=== PATIENT | female | born 1970 | race Caucasian/White ===

== ENCOUNTER → 2016-12-23 | Outpatient (CLI) | payer BC ==
--- NOTE | 2016-12-23 14:49 | MM ---
Reason for exam: clinical finding. Last mammogram was performed 1 year and 9 months ago. History: Patient is postmenopausal. Family history of breast cancer in aunt at age 40. Took hormonal contraceptives for 3 years beginning at age 16. Physical Findings: Nurse did not find any significant physical abnormalities on exam. MG Diagnostic Mammo w CAD TATYANA Bilateral CC and MLO view(s) were taken. Prior study comparison: March 21, 2015, bilateral MG screening mammo w CAD. December 15, 2013, bilateral digital screening mammo w/CAD. March 23, 2012, bilateral digital screening mammo w/CAD. There are scattered fibroglandular densities. Finding: There are typically benign round calcifications in both breasts. There is a chronic nodularity bilaterally. There is no discrete abnormality. These results were verbally communicated with the patient and result sheet given to the patient on 12/23/16. ASSESSMENT: Benign, BI-RAD 2 RECOMMENDATION: Routine screening mammogram of both breasts in 1 year. Manage patient on a clinical basis with regard to thickening in the breast.
== END | disposition home or self-care (01) ==
LOC: RADMAMWWP 13:48
PROVIDERS: ATTEND Family Medicine
DX: N64.59 Other signs and symptoms in breast (principal)

== ENCOUNTER 2017-02-19 15:51 | Inpatient (IN) | payer BC ==
[2017-02-19] MEDS ORDERED: SODIUM CHLORIDE 0.9% 1,000 ML IV STA (17:43)
[2017-02-19] MEDS ORDERED: HYDROmorphone 1 MG/ML 1 ML SYRINGE IVP STA (17:43)
[2017-02-19] MEDS ORDERED: ONDANSETRON 4 MG/2 ML VIAL IVP STA (17:43)
--- NOTE | 2017-02-19 18:27 | ED ---
Abdominal Pain HPI <Gianluca Latham - Last Filed: 02/19/17 18:44> - General Source: patient, RN notes reviewed Mode of arrival: ambulatory Limitations: no limitations <Shelia Gilliam - Last Filed: 02/19/17 18:45> - General Chief Complaint: Abdominal Pain Stated Complaint: Dr Sent/ Recheck xray Time Seen by Provider: 02/19/17 17:42 - History of Present Illness Initial Comments: 46-year-old female presents to the emergency department with a chief complaint abdominal pain. Patient has had abdominal pain and fever for the past 3 or 4 days. Patient went to see her doctor today and was sent to CAT scan and then was referred here. Patient states she had a fever of 101 today. Patient states most of the left side of the abdomen. Patient states that she has never before. Patient denies any other symptoms. Patient denies any recent shortness of breath, chest pain, back pain, nausea vomiting, numbness or tingling, dysuria or hematuria, constipation or diarrhea, headaches or visual changes, or any other current symptoms. (Shelia Gilliam) - Related Data Home Medications Medication Instructions Recorded Confirmed Ergocalciferol [Vitamin D2] 50,000 unit PO TH 02/19/17 02/19/17 Gabapentin [Neurontin] 200 mg PO BID 02/19/17 02/19/17 Lansoprazole [Prevacid] 15 mg PO DAILY 02/19/17 02/19/17 Lisinopril-Hctz 10-12.5 mg 1 tab PO DAILY 02/19/17 02/19/17 [Zestoretic 10-12.5] PARoxetine [Paxil] 10 mg PO DAILY 02/19/17 02/19/17 SUMAtriptan SUCCINATE [Imitrex] 4 mg SQ ONCE PRN 02/19/17 02/19/17 Allergies Allergy/AdvReac Type Severity Reaction Status Date / Time clarithromycin [From Biaxin] Allergy Swelling Verified 02/19/17 18:05 Penicillins Allergy Swelling Verified 02/19/17 18:05 Review of Systems ROS Other: All systems not noted in ROS Statement are negative. <Gianluca Latham - Last Filed: 02/19/17 18:44> ROS Other: All systems not noted in ROS Statement are negative. <Shelia Gilliam - Last Filed: 02/19/17 18:45> ROS Statement: Those systems with pertinent positive or pertinent negative responses have been documented in the HPI. Past Medical History Past Medical History: GERD/Reflux, Hypertension Additional Past Medical History / Comment(s): migraine History of Any Multi-Drug Resistant Organisms: None Reported Past Surgical History: Cholecystectomy, Hysterectomy Past Psychological History: Anxiety, Depression Smoking Status: Never smoker Past Alcohol Use History: None Reported Past Drug Use History: None Reported <Shelia Gilliam - Last Filed: 02/19/17 18:45> General Exam <Gianluca Latham - Last Filed: 02/19/17 18:44> Limitations: no limitations <Shelia Gilliam - Last Filed: 02/19/17 18:45> - General Exam Comments Initial Comments: General: The patient is awake and alert, in no distress, and does not appear acutely ill. Eye: Pupils are equal, round and reactive to light, extra-ocular movements are intact; there is normal conjunctiva bilaterally. No signs of icterus. Ears, nose, mouth and throat: There are moist mucous membranes and no oral lesions. Neck: The neck is supple, there is no tenderness. Cardiovascular: There is a regular rate and rhythm. No murmur, rub or gallop is appreciated. Respiratory: Lungs are clear to auscultation, respirations are non-labored, breath sounds are equal. No wheezes, stridor, rales, or rhonchi. Gastrointestinal: Soft, non-distended, slight left-sided tenderness of the abdomen without masses or organomegaly noted. There is no rebound or guarding present. No CVA tenderness. Bowel sounds are unremarkable. Back: There is no tenderness to palpation in the midline. There is no obvious deformity. No rashes noted. Musculoskeletal: Normal ROM, no tenderness, There is no pedal edema. There is no calf tenderness or swelling. Sensation intact. Pulses equal bilaterally 2+. Neurological: CN II-XII intact, There are no obvious motor or sensory deficits. Coordination appears grossly intact. Speech is normal. Skin: Skin is warm and dry and no rashes or lesions are noted. Psychiatric: Cooperative, appropriate mood & affect, normal judgment. (Shelia Gilliam) Medical Decision Making - Lab Data Result diagrams: 02/19/17 18:18 <Gianluca Latham - Last Filed: 02/19/17 18:44> - Lab Data Result diagrams: 02/19/17 18:18 02/19/17 18:18 - Radiology Data Radiology results: report reviewed, image reviewed <Shelia Gilliam - Last Filed: 02/19/17 18:45> - Medical Decision Making Patient reevaluated by myself, Dr. Latham. Patient resting comfortably in bed. Patient has mild to moderate tenderness left upper and lower quadrant. Results reviewed. Patient updated. (Gianluca Latham) 46-year-old female presents emergency Department chief complaint of left-sided abdominal pain. Patient does have positive CT for diverticulitis. Due to the patient's fever we will admit this time as her IV antibiotics. She does agree with plan. On-call Dr. Chapman was counseled regarding the case and he agreed to the admission. The case was discussed with the or the nurse practitioner for Dr. Chapman who agrees with plan (Shelia Gilliam) - Lab Data Lab Results 02/19/17 02/19/17 Range/Units 18:18 18:18 WBC 13.4 H (3.8-10.6) k/uL RBC 4.16 (3.80-5.40) m/uL Hgb 14.1 (11.4-16.0) gm/dL Hct 39.3 (34.0-46.0) % MCV 94.5 (80.0-100.0) fL MCH 33.8 (25.0-35.0) pg MCHC 35.8 (31.0-37.0) g/dL RDW 13.9 (11.5-15.5) % Plt Count 378 (150-450) k/uL Neutrophils % 68 % Lymphocytes % 24 % Monocytes % 4 % Eosinophils % 2 % Basophils % 0 % Neutrophils # 9.1 H (1.3-7.7) k/uL Lymphocytes # 3.2 (1.0-4.8) k/uL Monocytes # 0.5 (0-1.0) k/uL Eosinophils # 0.2 (0-0.7) k/uL Basophils # 0.0 (0-0.2) k/uL Sodium 136 L (137-145) mmol/L Potassium 3.7 (3.5-5.1) mmol/L Chloride 102 (98-107) mmol/L Carbon Dioxide 20 L (22-30) mmol/L Anion Gap 14 mmol/L BUN 10 (7-17) mg/dL Creatinine 0.71 (0.52-1.04) mg/dL Est GFR (MDRD) Af Amer >60 (>60 ml/min/1.73 sqM) Est GFR (MDRD) Non-Af >60 (>60 ml/min/1.73 sqM) Glucose 120 H (74-99) mg/dL Calcium 9.1 (8.4-10.2) mg/dL Total Bilirubin 1.1 (0.2-1.3) mg/dL AST 50 H (14-36) U/L ALT 93 H (9-52) U/L Alkaline Phosphatase 113 (38-126) U/L Total Protein 7.5 (6.3-8.2) g/dL Albumin 4.0 (3.5-5.0) g/dL Amylase 33 (30-110) U/L Lipase 78 (23-300) U/L Disposition <Gianluca Latham - Last Filed: 02/19/17 18:44> Time of Disposition: 18:28 Decision Date: 02/19/17 Decision Time: 18:28 <Shelia Gilliam - Last Filed: 02/19/17 18:45> Clinical Impression: Acute diverticulitis Disposition: ADMITTED IP TO [facility] Condition: Stable Referrals: Lang Warren DO [Primary Care Provider] - 1-2 days
[2017-02-19] MEDS ORDERED: LEVOFLOXACIN 750MG-D5W PMX 750 MG in DEXTROSE/WATER 1 150ML.BAG IVPB STA (18:28)
[2017-02-19] MEDS ORDERED: metroNIDAZOLE-NS PMX 500 MG in SALINE 1 100ML.BAG IVPB STA (18:28)
[2017-02-19 18:31] LABS: Basophils % (A) 0 %; CH 32.6; CHCM 34.7; Eosinophils # (A) 0.2 k/uL (0-0.7); Eosinophils % (A) 2 %; HCT 39.3 % (34.0-46.0); HGB 14.1 gm/dL (11.4-16.0); Luc # (Auto) 0.33; Luc % (Auto) 3; Lymphocytes # (A) 3.2 k/uL (1.0-4.8); Lymphocytes % (A) 24 %; MCH 33.8 pg (25.0-35.0); MCHC 35.8 g/dL (31.0-37.0); MCV 94.5 fL (80.0-100.0); Monocytes # (A) 0.5 k/uL (0-1.0); Monocytes % (A) 4 %; Neutrophils # (A) 9.1 k/uL (1.3-7.7); Neutrophils % (A) 68 %; RBC 4.16 m/uL (3.80-5.40); RDW 13.9 % (11.5-15.5); WBC 13.4 k/uL (3.8-10.6); WBC (Perox) 13.56
[2017-02-19] MEDS ORDERED: MORPHINE SULFATE 4 MG/ML SYRINGE IVP STA (18:33)
[2017-02-19 18:44] LABS: ALT 93 U/L (9-52); AST 50 U/L (14-36); Alkaline Phosphatase 113 U/L (38-126); Amylase 33 U/L (30-110); Anion Gap 14 mmol/L; Blood Urea Nitrogen 10 mg/dL (7-17); Calcium 9.1 mg/dL (8.4-10.2); Carbon Dioxide 20 mmol/L (22-30); Chloride 102 mmol/L (98-107); Glucose 120 mg/dL (74-99); Non-African American GFR(MDRD) >60 (>60 ml/min/1.73 sqM); Potassium 3.7 mmol/L (3.5-5.1); Sodium 136 mmol/L (137-145); Total Bilirubin 1.1 mg/dL (0.2-1.3); Total Protein 7.5 g/dL (6.3-8.2)
[2017-02-19] MEDS ORDERED: ACETAMINOPHEN TAB 325 MG TAB PO PRN (18:49)
[2017-02-19] MEDS ORDERED: ONDANSETRON 4 MG/2 ML VIAL IVP PRN (18:49)
[2017-02-19] MEDS ORDERED: KETOROLAC 30 MG/ML 1 ML VIAL IVP PRN (18:49)
[2017-02-19] MEDS ORDERED: NALOXONE 0.4 MG/ML 1 ML VIAL IV PRN (18:49)
[2017-02-19 18:51] LABS: Appearance,Urine Clear (Clear); Bilirubin,Urine Negative (Negative); Glucose,Urine (UA) Negative (Negative); Ketones,Urine Negative (Negative); Leukocyte Esterase,Urine Negative (Negative); Nitrite,Urine Negative (Negative); Protein,Urine Negative (Negative); Specific Gravity,Urine 1.007 (1.001-1.035); UA Billing (MACRO vs. MICRO) CHEM; Urobilinogen,Urine <2.0 mg/dL (<2.0)
[2017-02-19] MEDS ORDERED: SUMAtriptan SUCCINATE 6 MG/0.5 ML VIAL SQ PRN (18:53)
[2017-02-19] MEDS ORDERED: ERGOCALCIFEROL 50,000 UNIT CAP PO SCH (19:00)
[2017-02-19 21:13] VITALS: BMI 40.3
[2017-02-19] MEDS: GABAPENTIN 100 MG CAP PO SCH (21:14)
[2017-02-19] MEDS: HYDROcodone/APAP 5-325MG 1 EACH TAB PO PRN (23:20)
[2017-02-19] MEDS: metroNIDAZOLE-NS PMX 500 MG in SALINE 1 100ML.BAG IVPB SCH (23:33)
[2017-02-20] MEDS: MORPHINE SULFATE 4 MG/ML SYRINGE IV PRN ×2 (04:13→09:02)
[2017-02-20] MEDS: SODIUM CHLORIDE 0.9% 1,000 ML IV SCH ×2 (07:10→14:53)
[2017-02-20 07:34] LABS: Basophils % (A) 1 %; CH 32.5; CHCM 33.9; Eosinophils # (A) 0.1 k/uL (0-0.7); Eosinophils % (A) 2 %; HCT 37.1 % (34.0-46.0); HDW 2.83; Luc % (Auto) 3; Lymphocytes # (A) 1.6 k/uL (1.0-4.8); Lymphocytes % (A) 23 %; MCH 33.7 pg (25.0-35.0); MCV 96.4 fL (80.0-100.0); Mean Platelet Volume 6.9; Monocytes # (A) 0.5 k/uL (0-1.0); Monocytes % (A) 7 %; Neutrophils # (A) 4.6 k/uL (1.3-7.7); Neutrophils % (A) 66 %; RBC 3.85 m/uL (3.80-5.40); RDW 13.8 % (11.5-15.5); WBC (Perox) 7.42
[2017-02-20 07:46] LABS: ALT 92 U/L (9-52); AST 58 U/L (14-36); Alkaline Phosphatase 89 U/L (38-126); Anion Gap 11 mmol/L; Blood Urea Nitrogen 8 mg/dL (7-17); Calcium 8.6 mg/dL (8.4-10.2); Carbon Dioxide 21 mmol/L (22-30); Chloride 108 mmol/L (98-107); Glucose 105 mg/dL (74-99); Non-African American GFR(MDRD) >60 (>60 ml/min/1.73 sqM); Potassium 4.1 mmol/L (3.5-5.1); Sodium 140 mmol/L (137-145); Total Bilirubin 0.8 mg/dL (0.2-1.3); Total Protein 6.5 g/dL (6.3-8.2)
[2017-02-20] MEDS: PANTOPRAZOLE 40 MG TABLET PO SCH (07:51)
[2017-02-20] MEDS: GABAPENTIN 100 MG CAP PO SCH ×2 (07:51→21:10)
[2017-02-20] MEDS: metroNIDAZOLE-NS PMX 500 MG in SALINE 1 100ML.BAG IVPB SCH ×2 (07:53→17:00)
[2017-02-20] MEDS: LISINOPRIL-HCTZ 10-12.5 MG 1 EACH TAB PO SCH (07:59)
[2017-02-20] MEDS: PARoxetine 10 MG TAB PO SCH (07:59)
[2017-02-20] MEDS: IBUPROFEN 400 MG TAB PO PRN (14:52)
[2017-02-20] MEDS: HYDROcodone/APAP 5-325MG 1 EACH TAB PO PRN (16:59)
[2017-02-20] MEDS ORDERED: LEVOFLOXACIN 750MG-D5W PMX 750 MG in DEXTROSE/WATER 1 150ML.BAG IVPB SCH (18:30)
[2017-02-21] MEDS: metroNIDAZOLE-NS PMX 500 MG in SALINE 1 100ML.BAG IVPB SCH ×2 (00:41→07:55)
[2017-02-21 01:58] VITALS: RESP 16
[2017-02-21] MEDS: HYDROcodone/APAP 5-325MG 1 EACH TAB PO PRN (03:46)
[2017-02-21] MEDS: SODIUM CHLORIDE 0.9% 1,000 ML IV SCH (06:11)
[2017-02-21] MEDS: PANTOPRAZOLE 40 MG TABLET PO SCH (07:21)
[2017-02-21] MEDS: PARoxetine 10 MG TAB PO SCH (07:21)
[2017-02-21] MEDS: IBUPROFEN 400 MG TAB PO PRN (07:21)
[2017-02-21] MEDS: GABAPENTIN 100 MG CAP PO SCH (07:22)
[2017-02-21 07:39] VITALS: BP 125/87; PULSE 82; TEMP 98.8
[2017-02-21] MEDS: LISINOPRIL-HCTZ 10-12.5 MG 1 EACH TAB PO SCH (07:55)
--- NOTE | 2017-02-21 17:19 | P.HPIM ---
History of Present Illness H&P Date: 02/20/17 46-year-old female presents to the emergency department with a chief complaint abdominal pain. Patient has had abdominal pain and fever for the past 3 or 4 days. Patient was seen by primary care physician and the CT of the abdomen and pelvis was ordered which showed sigmoid diverticulitis and patient was referred to ER and patient was started on metronidazole and levofloxacin. Patient continued to have "sharp 9 x 10 left lower quadrant pain radiating to the back. Patient had low-grade fevers. The hospital Patient states she had a fever of 101 today. Patient states most of the left side of the abdomen. Patient states that she has never before. Patient denied any hematochezia, diarrhea. Patient denied any chronic constipation. Review of Systems REVIEW OF SYSTEMS: CONSTITUTIONAL: No fever, no malaise, no fatigue. HEENT: No recent visual problems or hearing problems. Denied any sore throat. CARDIOVASCULAR: No chest pain, orthopnea, PND, no palpitations, no syncope. PULMONARY: No shortness of breath, no cough, no hemoptysis. GASTROINTESTINAL: As mentioned in HPI NEUROLOGICAL: No headaches, no weakness, no numbness. HEMATOLOGICAL: Denies any bleeding or petechiae. GENITOURINARY: Denies any burning micturition, frequency, or urgency. MUSCULOSKELETAL/RHEUMATOLOGICAL: Denies any joint pain, swelling, or any muscle pain. ENDOCRINE: Denies any polyuria or polydipsia. The rest of the 14-point review of systems is negative. Past Medical History Past Medical History: GERD/Reflux, Hypertension Additional Past Medical History / Comment(s): migraine History of Any Multi-Drug Resistant Organisms: None Reported Past Surgical History: Cholecystectomy, Hysterectomy Past Psychological History: Anxiety, Depression Smoking Status: Never smoker Past Alcohol Use History: None Reported Past Drug Use History: None Reported Medications and Allergies Home Medications Medication Instructions Recorded Confirmed Type Ergocalciferol [Vitamin D2] 50,000 unit PO TH 02/19/17 02/19/17 History Gabapentin [Neurontin] 200 mg PO BID 02/19/17 02/19/17 History Lansoprazole [Prevacid] 15 mg PO DAILY 02/19/17 02/19/17 History Lisinopril-Hctz 10-12.5 mg 1 tab PO DAILY 02/19/17 02/19/17 History [Zestoretic 10-12.5] PARoxetine [Paxil] 10 mg PO DAILY 02/19/17 02/19/17 History SUMAtriptan SUCCINATE [Imitrex] 4 mg SQ ONCE PRN 02/19/17 02/19/17 History Allergies Allergy/AdvReac Type Severity Reaction Status Date / Time clarithromycin [From Biaxin] Allergy Swelling Verified 02/19/17 18:05 Penicillins Allergy Swelling Verified 02/19/17 18:05 Physical Exam Vitals: Vital Signs Temp Pulse Resp BP Pulse Ox 02/21/17 07:00 98.8 F 82 16 125/87 96 02/21/17 01:57 97 F L 79 16 106/64 96 02/20/17 20:00 86 Intake and Output 02/21/17 02/21/17 02/21/17 06:59 14:59 22:59 Intake Total 1660 Balance 1660 Intake: Intake, IV Titration 1200 Amount Sodium Chloride 0.9% 1, 1100 000 ml @ 100 mls/hr IV . Q10H ALEX Rx#:[id number] metroNIDAZOLE-NS PMX 500 100 mg In Saline 1 100ml.bag @ 100 mls/hr IVPB Q8HR ALEX Rx#:[id number] Oral 460 Other: # Bowel Movements 1 PHYSICAL EXAMINATION: GENERAL: The patient is alert and oriented x3, not in any acute distress. Well developed, well nourished. HEENT: Pupils are round and equally reacting to light. EOMI. No scleral icterus. No conjunctival pallor. Normocephalic, atraumatic. No pharyngeal erythema. No thyromegaly. CARDIOVASCULAR: S1 and S2 present. No murmurs, rubs, or gallops. PULMONARY: Chest is clear to auscultation, no wheezing or crackles. ABDOMEN: Soft, minimal left lower quadrant tenderness, nondistended, normoactive bowel sounds. No palpable organomegaly. MUSCULOSKELETAL: No joint swelling or deformity. EXTREMITIES: No cyanosis, clubbing, or pedal edema. NEUROLOGICAL: Gross neurological examination did not reveal any focal deficits. SKIN: No rashes. Results CBC & Chem 7: 02/20/17 06:40 02/20/17 06:40 Labs: Microbiology - Last 24 Hours (Table) 02/19/17 18:18 Blood Culture - Preliminary Blood No Growth after 24 hours Thrombosis Risk Factor Assmnt - Choose All That Apply Any of the Below Risk Factors Present?: No Other Risk Factors: No Thrombosis Risk Factor Assessment Level: Very Low Risk Assessment and Plan Plan: #1 sepsis secondary to diverticulitis: Patient will be continued on IV metronidazole and levofloxacin and IV fluids possibly day of discharge tomorrow. #2 gastroesophageal reflux disease #3 hypertension #4 migraine For above-mentioned chronic medical problems continue with home medications
--- NOTE | 2017-02-21 17:20 | P.DS ---
Providers Date of admission: 02/19/17 18:45 Attending physician: Ricardo Chapman Primary care physician: Lang Warren [facility] Course: Patient was admitted for diverticulitis with improved symptoms original discharge on 1 week of oral antibiotics. Patient followed primary care physician in 3-7 days Patient Condition at Discharge: Stable Plan - Discharge Summary New Discharge Prescriptions: New Ciprofloxacin HCl [Cipro] 500 mg PO Q12HR #14 tablet metroNIDAZOLE [Flagyl] 500 mg PO TID #21 tab No Action Ergocalciferol [Vitamin D2] 50,000 unit PO TH PARoxetine [Paxil] 10 mg PO DAILY Lansoprazole [Prevacid] 15 mg PO DAILY Gabapentin [Neurontin] 200 mg PO BID SUMAtriptan SUCCINATE [Imitrex] 4 mg SQ ONCE PRN PRN Reason: Migraine Headache Lisinopril-Hctz 10-12.5 mg [Zestoretic 10-12.5] 1 tab PO DAILY Discharge Medication List Ergocalciferol [Vitamin D2] 50,000 unit PO TH 02/19/17 [History] Gabapentin [Neurontin] 200 mg PO BID 02/19/17 [History] Lansoprazole [Prevacid] 15 mg PO DAILY 02/19/17 [History] Lisinopril-Hctz 10-12.5 mg [Zestoretic 10-12.5] 1 tab PO DAILY 02/19/17 [History ] PARoxetine [Paxil] 10 mg PO DAILY 02/19/17 [History] SUMAtriptan SUCCINATE [Imitrex] 4 mg SQ ONCE PRN 02/19/17 [History] Ciprofloxacin HCl [Cipro] 500 mg PO Q12HR #14 tablet 02/20/17 [Rx] metroNIDAZOLE [Flagyl] 500 mg PO TID #21 tab 02/20/17 [Rx] Follow up Appointment(s)/Referral(s): Lang Warren DO [Primary Care Provider] - 3 Days (Please call to make appointment. ) Patient Instructions/Handouts: Diverticulitis (DC), Diverticulitis (GEN), Diverticulitis Diet (DC) Discharge Disposition: HOME SELF-CARE
--- NOTE | 2017-02-25 12:26 | CDI ---
In responding to this query, please exercise your independent professional judgment. The [facility] Coding Staff and Clinical Documentation Specialists appreciate your assistance in clarifying documentation, maintaining compliance with coding guidelines, accurately documenting patients condition and capturing severity of illness. The fact that a question is asked does not imply that any particular answer is desired or expected. Communication forms are a method of clarifying documentation and are not made part of the Legal Health Record. Thank you in advance for your clarification. Last Revision, June [address] [place] [address] Documentation Clarification Form Date: 02/25/2017 12:01:00 PM From: Sandee Fleming/Agueda Kaufman Admit Date: 02/19/2017 6:45:00 PM Patient Name: Catherine Allen Visit Number: [id number] Discharge Date: Dr. Delmer Frazier Sepsis secondary to diverticulitis is documented in the H&P but not in the discharge summary. Patient history/risk factors: Abdominal pain and fever for 3 to 4 days. Patient stated that she had a fever of 101 prior to admission. Lab findings: WBCs on admission 13.4, Lactic Acid 1.3 on day of admission Radiology findings: CT showed sigmoid diverticulitis Vital Signs: T. 99.3, R. 18, P. 78 on admission and 90 on 02/20, BP 119/86 Treatment: IV Levofloxacin and IV Metronidazole In your professional opinion, can you please clarify if Sepsis was Ruled In or Ruled Out? Other Unable to determine Please document in your progress notes and discharge summary in order to capture severity of illness and risk of mortality. Include clinical findings that support your diagnosis. FYI: Press F11 to launch patient chart. Place X here if this finding has no clinical significance, is not applicable or if you are not able to provide any additional documentation. Sepsis ruled out MTDD
== END 2017-02-21 09:57 | disposition home or self-care (01) | DRG 392 ==
LOC: EC 15:51 → 3SUR 18:45
PROVIDERS: ADMIT Internal Medicine; ATTEND Internal Medicine
DX: K57.32 Diverticulitis of large intestine without perforation or abscess without bleeding (principal); I10 Essential (primary) hypertension; F32.9 Major depressive disorder, single episode, unspecified; F41.9 Anxiety disorder, unspecified; G43.909 Migraine, unspecified, not intractable, without status migrainosus; K21.9 Gastro-esophageal reflux disease without esophagitis; Z79.899 Other long term (current) drug therapy; Z88.1 Allergy status to other antibiotic agents; Z88.0 Allergy status to penicillin
CPT/HCPCS: 36415; 80053; 81003; 82150; 83605; 83690; 85025; 87040; 96361; 96365; 96375; 99285

== ENCOUNTER → 2017-02-19 | Outpatient (CLI) | payer BC ==
--- NOTE | 2017-02-19 15:37 | CT ---
EXAMINATION TYPE: CT abdomen pelvis wo con DATE OF EXAM: 02/19/2017 COMPARISON: NONE HISTORY: 46-year-old female Left flank pain and fever. CT DLP: 1073.9 mGycm. Automated exposure control for dose reduction was used. TECHNIQUE: Contiguous axial scanning of the abdomen and pelvis without IV contrast. Coronal and sagit marybeth reconstructions performed. FINDINGS: The heart is normal size with trace basilar anterior pericardial fluid. Lung bases clear without pleu ral effusion. Liver is enlarged measuring 22.3 cm craniocaudal with severe hepatic steatosis. Cholecystectomy clips are present. Noncontrast appearance of the adrenal glands, kidneys, spleen, and pancreas within normal limits. No dilated small bowel, free fluid, or free air. Normal appendix. There is rectus diastases with anterior bulging of the linea alba. Diastases measures 10 cm wide with protruding omentum and colon. There are a couple underlying right paramedian fat-containing hernias measuring up to 3.8 cm, sagittal image 60. No mesenteric or retroperitoneal lymphadenopathy. Scattered colonic diverticulosis, greatest within the sigmoid colon. At the mid sigmoid, there is foc al wall thickening with inflammatory fat stranding. No fluid collection. Bladder is urine distended. Uterus surgically absent. Left ovary is visualized. Right ovary not clear ly delineated. No abnormal fluid collection in the pelvis or pelvic lymphadenopathy seen. Bones: Facet arthropathy lower lumbar spine. No osseous destructive process. IMPRESSION: 1. Acute diverticulitis of the mid sigmoid with mild to moderate inflammation. No abscess or free ai r. 2. Hepatomegaly with severe hepatic steatosis. Correlate with LFTs, lipid profile, and patient risk factors. 3. Rectus diastases measuring 10 cm wide and small fat-containing right perimedian hernias measuring up to 3.8 cm.
[2017-02-19 15:57] LABS: ALT 95 U/L (9-52); AST 54 U/L (14-36); Alkaline Phosphatase 124 U/L (38-126); Anion Gap 13 mmol/L; Blood Urea Nitrogen 10 mg/dL (7-17); Calcium 9.3 mg/dL (8.4-10.2); Carbon Dioxide 20 mmol/L (22-30); Chloride 102 mmol/L (98-107); Glucose 118 mg/dL (74-99); Non-African American GFR(MDRD) >60 (>60 ml/min/1.73 sqM); Potassium 3.9 mmol/L (3.5-5.1); Sodium 135 mmol/L (137-145); Total Protein 7.6 g/dL (6.3-8.2)
== END | disposition home or self-care (01) ==
LOC: RADCTMAIN 14:44
PROVIDERS: ATTEND Family Medicine
DX: K57.32 Diverticulitis of large intestine without perforation or abscess without bleeding (principal); R16.0 Hepatomegaly, not elsewhere classified; K76.0 Fatty (change of) liver, not elsewhere classified; K46.9 Unspecified abdominal hernia without obstruction or gangrene; M54.9 Dorsalgia, unspecified; M62.08 Separation of muscle (nontraumatic), other site; R50.9 Fever, unspecified; Z87.442 Personal history of urinary calculi
CPT/HCPCS: 74176; 80053

== ENCOUNTER → 2018-03-12 | Outpatient (CLI) | payer BC ==
[2018-03-12 18:49] LABS: Hemoglobin A1C 6.5 % (4.0-6.0)
[2018-03-15 14:18] LABS: Albumin 3.79 g/dL (3.80-4.90); Gamma Globulin 1.04 g/dL (0.70-1.50); Protein, Total 6.8 g/dL (6.2-8.2)
[2018-03-16 09:04] LABS: Lyme IgG/IgM 0.2 Index
== END | disposition home or self-care (01) ==
LOC: LABWHC1 06:42
PROVIDERS: ATTEND Psychiatry & Neurology Neurology
DX: G62.9 Polyneuropathy, unspecified (principal)
CPT/HCPCS: 36415; 82550; 82607; 82747; 83036; 84165; 85652; 86038; 86618

== ENCOUNTER → 2018-04-09 | Outpatient (CLI) | payer BC ==
--- NOTE | 2018-04-13 12:07 | MM ---
Reason for exam: screening (asymptomatic). Last mammogram was performed 1 year and 3 months ago. History: Patient is postmenopausal. Family history of breast cancer in aunt at age 40. Took hormonal contraceptives for 3 years beginning at age 16. Physical Findings: A clinical breast exam by your physician is recommended on an annual basis and results should be correlated with mammographic findings. MG Screening Mammo w CAD Bilateral CC and MLO view(s) were taken. Prior study comparison: December 23, 2016, bilateral MG diagnostic mammo w CAD TATYANA. March 21, 2015, bilateral MG screening mammo w CAD. There are scattered fibroglandular densities. No significant changes when compared with prior studies. ASSESSMENT: Benign, BI-RAD 2 RECOMMENDATION: Routine screening mammogram of both breasts in 1 year.
== END | disposition home or self-care (01) ==
LOC: RADMAMWWP 06:50
PROVIDERS: ATTEND Family Medicine
DX: Z12.31 Encounter for screening mammogram for malignant neoplasm of breast (principal)
CPT/HCPCS: 77067

== ENCOUNTER → 2019-05-02 | Outpatient (CLI) | payer BC ==
[2019-05-02 16:12] LABS: Chol/HDL Ratio 4.69
== END | disposition home or self-care (01) ==
LOC: LABWHC1 09:16
PROVIDERS: ATTEND Family Medicine
DX: Z00.00 Encounter for general adult medical examination without abnormal findings (principal)
CPT/HCPCS: 36415; 80061; 82947

== ENCOUNTER 2020-04-21 12:21 | Observation (INO) | payer BC ==
--- NOTE | 2020-04-21 12:55 | ED ---
General Adult HPI - General Chief complaint: Chest Pain Stated complaint: chest pain Time Seen by Provider: 04/21/20 12:41 Source: patient, RN notes reviewed, old records reviewed Mode of arrival: ambulatory Limitations: no limitations - History of Present Illness Initial comments: 50-year-old female history of hypertension and diabetes presents for evaluation of left upper back pain and left arm pain with associated dyspnea that began suddenly prior to arrival. Approximately 30 minutes prior to arrival. She has no history DVT or PE, no history of CAD. She states she was feeling sweaty but she had been working quite hard at the time of these symptoms. No central chest pain. No abdominal pain. No vomiting. No preceding symptoms. She did have some associated palpitations associated with this. - Related Data Home Medications Medication Instructions Recorded Confirmed Lisinopril-Hctz 10-12.5 mg 1 tab PO DAILY 02/19/17 04/21/20 [Zestoretic 10-12.5] Aspirin EC [Ecotrin Low Dose] 243 mg PO ONCE PRN 04/21/20 04/21/20 DULoxetine HCL [Cymbalta] 60 mg PO DAILY@1600 04/21/20 04/21/20 Gabapentin [Neurontin] 400 mg PO TID 04/21/20 04/21/20 Levothyroxine Sodium [Synthroid] 25 mcg PO DAILY 04/21/20 04/21/20 metFORMIN HCL 1,000 mg PO BID 04/21/20 04/21/20 Allergies Allergy/AdvReac Type Severity Reaction Status Date / Time clarithromycin [From Biaxin] Allergy Swelling Verified 04/21/20 13:41 Penicillins Allergy Swelling Verified 04/21/20 13:41 Review of Systems ROS Statement: Those systems with pertinent positive or pertinent negative responses have been documented in the HPI. ROS Other: All systems not noted in ROS Statement are negative. Past Medical History Past Medical History: GERD/Reflux, Hypertension Additional Past Medical History / Comment(s): migraine History of Any Multi-Drug Resistant Organisms: None Reported Past Surgical History: Cholecystectomy, Hysterectomy Past Psychological History: Anxiety, Depression Smoking Status: Never smoker Past Alcohol Use History: None Reported Past Drug Use History: None Reported General Exam Limitations: no limitations General appearance: alert, in no apparent distress Head exam: Present: atraumatic, normocephalic Eye exam: Present: normal appearance, PERRL ENT exam: Present: normal exam Neck exam: Present: normal inspection. Absent: tenderness, meningismus Respiratory exam: Present: normal lung sounds bilaterally. Absent: respiratory distress, wheezes, rales Cardiovascular Exam: Present: normal rhythm, tachycardia GI/Abdominal exam: Present: soft. Absent: distended, tenderness, guarding, rebound Extremities exam: Present: normal inspection, normal capillary refill. Absent: pedal edema, calf tenderness Neurological exam: Present: alert, oriented X3, CN II-XII intact. Absent: motor sensory deficit Psychiatric exam: Present: anxious Skin exam: Present: warm, diaphoretic Course Vital Signs 04/21/20 04/21/20 04/21/20 12:39 13:03 13:30 Temperature 97.9 F Pulse Rate 132 H 124 H 113 H Respiratory 18 16 Rate Blood Pressure 146/79 122/81 O2 Sat by Pulse 99 97 Oximetry 04/21/20 14:00 Temperature Pulse Rate 109 H Respiratory 16 Rate Blood Pressure 121/87 O2 Sat by Pulse 96 Oximetry EKG Findings - EKG Comments: EKG Findings:: EKG obtained at 1234, sinus tachycardia left atrial enlargement, rate of 123, NV interval 148, QRS duration 86, QTC 472, ST segment depression in lead 1 and possibly aVL and lateral precordial leads. Repeat EKG: Sinus tachycardia, rate of 127, NV interval 146, QRS duration 82, QTC 444, no ST segment elevation. Medical Decision Making - Medical Decision Making 50-year-old female presenting with left upper back pain radiating to the left arm with associated dyspnea and diaphoresis. She is tachycardic on arrival. There is concern for both cardiac ischemia as well as pulmonary embolism. Chest x-ray performed negative for acute cardiopulmonary disease. CT angiography is performed which is negative for large central pulmonary embolism. She has mild leukocytosis, stable hemoglobin. Initial troponin is negative. Patient is given aspirin, heparin. In the emergency department. She will be admitted for serial cardiac enzymes, telemetry, cardiology consultation. Case is discussed with Dr. Brown he will admit. - Lab Data Result diagrams: 04/21/20 12:51 04/21/20 12:51 Lab Results 04/21/20 04/21/20 04/21/20 Range/Units 12:51 12:51 12:51 WBC 12.2 H (3.8-10.6) k/uL RBC 4.69 (3.80-5.40) m/uL Hgb 14.9 (11.4-16.0) gm/dL Hct 45.2 (34.0-46.0) % MCV 96.2 (80.0-100.0) fL MCH 31.7 (25.0-35.0) pg MCHC 33.0 (31.0-37.0) g/dL RDW 14.0 (11.5-15.5) % Plt Count 513 H (150-450) k/uL Neutrophils % 63 % Lymphocytes % 29 % Monocytes % 4 % Eosinophils % 1 % Basophils % 1 % Neutrophils # 7.6 (1.3-7.7) k/uL Lymphocytes # 3.5 (1.0-4.8) k/uL Monocytes # 0.5 (0-1.0) k/uL Eosinophils # 0.2 (0-0.7) k/uL Basophils # 0.1 (0-0.2) k/uL PT 9.8 (9.0-12.0) sec INR 0.9 (<1.2) APTT 25.7 (22.0-30.0) sec Sodium 137 (137-145) mmol/L Potassium 3.8 (3.5-5.1) mmol/L Chloride 103 (98-107) mmol/L Carbon Dioxide 17 L (22-30) mmol/L Anion Gap 17 mmol/L BUN 17 (7-17) mg/dL Creatinine 0.98 (0.52-1.04) mg/dL Est GFR (CKD-EPI)AfAm 77 (>60 ml/min/1.73 sqM) Est GFR (CKD-EPI)NonAf 67 (>60 ml/min/1.73 sqM) Glucose 203 H (74-99) mg/dL Calcium 10.2 (8.4-10.2) mg/dL Magnesium 1.7 (1.6-2.3) mg/dL Total Bilirubin 0.7 (0.2-1.3) mg/dL AST 75 H (14-36) U/L ALT 76 H (4-34) U/L Alkaline Phosphatase 122 (38-126) U/L Troponin I (0.000-0.034) ng/mL Total Protein 8.4 H (6.3-8.2) g/dL Albumin 4.9 (3.5-5.0) g/dL Lipase 212 (23-300) U/L 04/21/20 Range/Units 12:51 WBC (3.8-10.6) k/uL RBC (3.80-5.40) m/uL Hgb (11.4-16.0) gm/dL Hct (34.0-46.0) % MCV (80.0-100.0) fL MCH (25.0-35.0) pg MCHC (31.0-37.0) g/dL RDW (11.5-15.5) % Plt Count (150-450) k/uL Neutrophils % % Lymphocytes % % Monocytes % % Eosinophils % % Basophils % % Neutrophils # (1.3-7.7) k/uL Lymphocytes # (1.0-4.8) k/uL Monocytes # (0-1.0) k/uL Eosinophils # (0-0.7) k/uL Basophils # (0-0.2) k/uL PT (9.0-12.0) sec INR (<1.2) APTT (22.0-30.0) sec Sodium (137-145) mmol/L Potassium (3.5-5.1) mmol/L Chloride (98-107) mmol/L Carbon Dioxide (22-30) mmol/L Anion Gap mmol/L BUN (7-17) mg/dL Creatinine (0.52-1.04) mg/dL Est GFR (CKD-EPI)AfAm (>60 ml/min/1.73 sqM) Est GFR (CKD-EPI)NonAf (>60 ml/min/1.73 sqM) Glucose (74-99) mg/dL Calcium (8.4-10.2) mg/dL Magnesium (1.6-2.3) mg/dL Total Bilirubin (0.2-1.3) mg/dL AST (14-36) U/L ALT (4-34) U/L Alkaline Phosphatase (38-126) U/L Troponin I <0.012 (0.000-0.034) ng/mL Total Protein (6.3-8.2) g/dL Albumin (3.5-5.0) g/dL Lipase (23-300) U/L Critical Care Time Critical Care Time: Yes Total Critical Care Time: 35 Disposition Clinical Impression: Unstable angina pectoris Disposition: ADMITTED IP TO THIS [facility] Condition: Stable Is patient prescribed a controlled substance at d/c from ED?: No Referrals: Lang Warren DO [Primary Care Provider] - 1-2 days Decision to Admit Reason: Admit from EC Decision Date: 04/21/20 Decision Time: 14:32
[2020-04-21 13:05] LABS: Basophils # (A) 0.1 k/uL (0-0.2); Basophils % (A) 1 %; Eosinophils # (A) 0.2 k/uL (0-0.7); Eosinophils % (A) 1 %; HCT 45.2 % (34.0-46.0); HGB 14.9 gm/dL (11.4-16.0); Lymphocytes # (A) 3.5 k/uL (1.0-4.8); Lymphocytes % (A) 29 %; MCH 31.7 pg (25.0-35.0); MCV 96.2 fL (80.0-100.0); Mean Platelet Volume 7.1; Monocytes # (A) 0.5 k/uL (0-1.0); Monocytes % (A) 4 %; Neutrophils # (A) 7.6 k/uL (1.3-7.7); Neutrophils % (A) 63 %; Platelet Count 513 k/uL (150-450); RBC 4.69 m/uL (3.80-5.40); WBC 12.2 k/uL (3.8-10.6)
--- NOTE | 2020-04-21 13:07 | XR ---
EXAMINATION TYPE: XR chest 1V DATE OF EXAM: 04/21/2020 COMPARISON: 10/07/2012 HISTORY: 50-year-old female with chest pain TECHNIQUE: Single frontal view of the chest is obtained. FINDINGS: Cardiomediastinal silhouette, aorta, and pulmonary vasculature are within normal limits. Lungs and pl eural spaces are clear. IMPRESSION: No acute cardiopulmonary process.
[2020-04-21 13:09] LABS: Albumin 4.9 g/dL (3.5-5.0); Calcium 10.2 mg/dL (8.4-10.2); INR 0.9 (<1.2); Magnesium 1.7 mg/dL (1.6-2.3); Partial Thromboplastin Time 25.7 sec (22.0-30.0); Potassium 3.8 mmol/L (3.5-5.1); Prothrombin Time 9.8 sec (9.0-12.0); Total Bilirubin 0.7 mg/dL (0.2-1.3); Total Protein 8.4 g/dL (6.3-8.2)
[2020-04-21] MEDS ORDERED: SODIUM CHLORIDE 0.9% 500 ML 500 ML IV ONE (13:29)
[2020-04-21] MEDS: SODIUM CHLORIDE 0.9% 1,000 ML IV SCH ×2 (13:35→22:49)
--- NOTE | 2020-04-21 14:01 | CT ---
EXAMINATION TYPE: CT angio chest DATE OF EXAM: 04/21/2020 COMPARISON: Same day radiographs HISTORY: 50-year-old female chest pain, difficulty breathing, tachycardia TECHNIQUE: Contiguous axial scanning of the chest performed with IV Contrast, patient injected with 1 00 mL of Isovue 370. Coronal/sagittal MIP reconstructions performed. CT DLP: 576 mGycm Automated exposure control for dose reduction was used. FINDINGS: The heart is normal size without pericardial effusion. There is excessive cardiac motion and addition al breathing motion limiting the exam. No reflux of contrast into the hepatic veins. Aorta normal caliber with conventional branching anatomy. No definite large central pulmonary embolus. No definite lobar branch embolus. Many of the segmental and more distal arterial branches are nondiagnostic due to the motion artifacts. No thoracic lymphadenopathy by CT size criteria. Some slight mosaic attenuation in the lower lobes and mild emphysematous change. There may be some sm all airways disease with air trapping. No consolidation or pleural effusion. Small hiatal hernia. Visualized upper abdomen shows cholecystectomy clips and suspected fatty infiltration of the liver. Bones: Moderate degenerative disc disease mid to lower thoracic spine with accentuated kyphosis. IMPRESSION: 1. EXCESSIVE CARDIAC MOTION WELL BREATHING MOTION DEGRADING ASSESSMENT FOR PULMONARY EMBOLI. NO LARGE CENTRAL PULMONARY EMBOLUS SEEN. NO DEFINITE LOBAR BRANCH EMBOLUS. MANY OF THE SEGMENTAL AND MO RE DISTAL ARTERIAL BRANCHES ARE NONDIAGNOSTIC AND EMBOLI IN THESE LOCATIONS CANNOT BE EXCLUDED ON THE BASIS OF THIS EXAM. 2. MILD EMPHYSEMA. THERE MAY BE SOME AIR TRAPPING IN THE LOWER LOBES SECONDARY SEEN WITH SMALL AIRWAY S DISEASE. 3. SMALL HIATAL HERNIA AND SUSPECTED FATTY INFILTRATION OF THE LIVER.
[2020-04-21] MEDS ORDERED: LORazepam 2 MG/ML INJ IV STA (14:19)
[2020-04-21] MEDS ORDERED: HEPARIN SODIUM,PORCINE 5,000 UNIT/ML 1 ML VIAL IV PRN (14:19)
[2020-04-21] MEDS ORDERED: HEPARIN SODIUM,PORCINE 5,000 UNIT/ML 1 ML VIAL IV ONE (14:19)
[2020-04-21] MEDS ORDERED: HYDROmorphone 0.5 MG/0.5 ML SYRINGE IVP PRN (14:24)
[2020-04-21] MEDS ORDERED: NALOXONE 0.4 MG/ML 1 ML VIAL IV PRN (14:24)
[2020-04-21] MEDS ORDERED: HEPARIN SOD,PORK IN 0.45% NACL 25,000 UNIT in 0.45% NACL 1 250ML.BAG IV SCH (14:30)
[2020-04-21] MEDS: ASPIRIN 325 MG TAB PO STA ×2 (14:32→14:52)
[2020-04-21] MEDS ORDERED: NITROGLYCERIN SL TABS 0.4 MG TAB SUBLINGUAL PRN (16:19)
[2020-04-21 17:16] LABS: Glucose,Whole Blood 94 mg/dL (75-99)
[2020-04-21] MEDS: INSULIN ASPART (NovoLOG) 100 UNIT/ML VIAL SQ SCH ×2 (17:55→21:22)
[2020-04-21] MEDS: metFORMIN 500 MG TAB PO SCH (17:56)
[2020-04-21] MEDS: DULoxetine HCL 60 MG CAPSULE.DR PO SCH (18:02)
[2020-04-21] MEDS: GABAPENTIN 400 MG CAP PO SCH ×2 (18:02→21:38)
--- NOTE | 2020-04-21 19:16 | P.HPIM ---
History of Present Illness H&P Date: 04/21/20 Chief Complaint: Heart fluttering History of presenting complaint: This is a pleasant 50-year-old patient of Dr. Rosanna Warren. Chronic stable medical conditions include hypothyroid, diabetes, GERD, hypertension, peripheral neuropathy, evident ecchymosis, anxiety depression. Patient has a known cardiac murmur which according to family doctor has progressively been getting worse. Patient is due to have a workup for the same. Patient and her brother decided to clear up her mother stuff that was in the garage. While interval to was the end of the chore she noticed that her heart started fluttering. Progressively became much worse and started pounding. Then her back left shoulder hours started having discomfort. She went inside the house and took an aspirin. She did broke a breakout in a sweat and somewhat lightheaded. Total bilirubin down to the hospital. No prior cardiac history. Review of systems: GEN.: Tired EYES: None HEENT: None NECK: None RESPIRATORY: None CARDIOVASCULAR: [As above GASTROINTESTINAL: GERD GENITOURINARY: None MUSCULOSKELETAL: None LYMPHATICS: None HEMATOLOGICAL: None PSYCHIATRY: None NEUROLOGICAL: [Peripheral neuropathy with numbness Past medical history to include: Diabetes, GERD, hypertension, migraine, peripheral neuropathy, anxiety depression Social history: This is a brother and a roommate. No history of smoking alcohol. Works for [employer] from home currently. Family history: Reviewed, noncontributory to presentation Physical examination: VITAL SIGNS: 97.9, 132, 18, 146/ 79, 99% room air on presentation GENERAL: BMI 34,'s Propper in bed, awake. EYES: Pupils equal. Conjunctiva normal. HEENT: External appearance of nose and ears normal, oral cavity grossly normal. NECK: JVD not raised; masses not palpable. HEART: First and second heart sounds are normal; systolic murmur both in the aorta aVF and in the mitral area. LUNGS: Respiratory rate normal; clear to auscultation. ABDOMEN: Soft, nontender, liver spleen not palpable, no masses palpable. PSYCH: Alert and oriented x3; mood and affect normal. NEUROLOGICAL: Cranial nerves grossly intact; no facial asymmetry, power and sensation grossly intact. LYMPHATICS: No lymph nodes palpable in the axilla and neck Investigations: White count 12.2 hemoglobin 14.9 platelets 513 potassium 3.8 creatinine 0.98 glucose 203 AST 75 ALT 76 Troponin I less than 0.012, 0.102 EKG tracing personally reviewed by me-shows sinus tachycardia, ST segment depression in leads 1, 2 V5 V6 Chest x-ray film personally reviewed by me-borderline cardiomegaly possibly motion artifacts Assessment: -Possible acute non-Q wave myocardial infarction. Patient has ST segment changes on the EKG. Troponin is started to peak up -Systolic murmur that has been known as an outpatient -Obesity BMI 34 -Diabetes mellitus type 2 causing peripheral neuropathy -GERD -Essential hypertension -Anxiety depression not otherwise specified -Hypothyroid -Mildly elevated LFTs likely hepatic steatosis Plan: Patient started IV heparin. Home medications resumed. On aspirin and beta lisha. Cardiology informed. Care was discussed with the patient. Questions were answered. Serial cardiac enzymes and place. We will do a hepatic ultrasound Past Medical History Past Medical History: Diabetes Mellitus, GERD/Reflux, Hypertension Additional Past Medical History / Comment(s): migraine, neuropathy History of Any Multi-Drug Resistant Organisms: None Reported Past Surgical History: Cholecystectomy, Hysterectomy Past Psychological History: Anxiety, Depression Smoking Status: Never smoker Past Alcohol Use History: None Reported Past Drug Use History: None Reported Medications and Allergies Home Medications Medication Instructions Recorded Confirmed Type Lisinopril-Hctz 10-12.5 mg 1 tab PO DAILY 02/19/17 04/21/20 History [Zestoretic 10-12.5] Aspirin EC [Ecotrin Low Dose] 243 mg PO ONCE PRN 04/21/20 04/21/20 History DULoxetine HCL [Cymbalta] 60 mg PO DAILY@1600 04/21/20 04/21/20 History Gabapentin [Neurontin] 400 mg PO TID 04/21/20 04/21/20 History Levothyroxine Sodium [Synthroid] 25 mcg PO DAILY 04/21/20 04/21/20 History metFORMIN HCL 1,000 mg PO BID 04/21/20 04/21/20 History Allergies Allergy/AdvReac Type Severity Reaction Status Date / Time clarithromycin [From Biaxin] Allergy Swelling Verified 04/21/20 13:41 Penicillins Allergy Swelling Verified 04/21/20 13:41 Physical Exam Vitals: Vital Signs Temp Pulse Pulse Resp BP BP Pulse Ox 04/21/20 15:38 98.9 F 99 16 108/67 96 04/21/20 14:53 98.9 F 106 H 18 114/71 98 04/21/20 14:00 109 H 16 121/87 96 04/21/20 13:30 113 H 16 122/81 97 04/21/20 13:03 124 H 04/21/20 12:39 97.9 F 132 H 18 146/79 99 Intake and Output 04/21/20 04/21/20 04/21/20 06:59 14:59 22:59 Intake Total 540 Balance 540 Intake: Oral 540 Other: Voiding Method Toilet # Voids 1 Weight 104.326 kg 104.326 kg Results CBC & Chem 7: 04/21/20 12:51 04/21/20 12:51 Labs: Abnormal Lab Results - Last 24 Hours (Table) 04/21/20 04/21/20 04/21/20 Range/Units 12:51 12:51 15:03 WBC 12.2 H (3.8-10.6) k/uL Plt Count 513 H (150-450) k/uL Carbon Dioxide 17 L (22-30) mmol/L Glucose 203 H (74-99) mg/dL AST 75 H (14-36) U/L ALT 76 H (4-34) U/L Troponin I 0.102 H* (0.000-0.034) ng/mL Total Protein 8.4 H (6.3-8.2) g/dL Thrombosis Risk Factor Assmnt - Choose All That Apply Any of the Below Risk Factors Present?: Yes Each Factor Represents 1 point: Age 41-60 years, Obesity (BMI >25) Other Risk Factors: No Thrombosis Risk Factor Assessment Total Risk Factor Score: 2 Thrombosis Risk Factor Assessment Level: Low Risk
[2020-04-21 21:26] LABS: Glucose,Whole Blood 129 mg/dL (75-99)
[2020-04-21] MEDS: METOPROLOL TARTRATE 12.5 MG TAB PO SCH (21:38)
[2020-04-22 03:34] LABS: Basophils # (A) 0.1 k/uL (0-0.2); Basophils % (A) 1 %; Eosinophils # (A) 0.2 k/uL (0-0.7); Eosinophils % (A) 3 %; HCT 38.3 % (34.0-46.0); HGB 12.2 gm/dL (11.4-16.0); Lymphocytes # (A) 3.4 k/uL (1.0-4.8); Lymphocytes % (A) 38 %; MCHC 31.9 g/dL (31.0-37.0); MCV 97.2 fL (80.0-100.0); Monocytes # (A) 0.5 k/uL (0-1.0); Monocytes % (A) 5 %; Neutrophils # (A) 4.6 k/uL (1.3-7.7); Neutrophils % (A) 51 %; Platelet Count 377 k/uL (150-450); RBC 3.95 m/uL (3.80-5.40); RDW 14.4 % (11.5-15.5); WBC 9.1 k/uL (3.8-10.6)
[2020-04-22 06:00] LABS: Glucose,Whole Blood 178 mg/dL (75-99)
[2020-04-22] MEDS: metFORMIN 500 MG TAB PO SCH (06:06)
[2020-04-22] MEDS: LEVOTHYROXINE 25 MCG TAB PO SCH (06:09)
[2020-04-22] MEDS ORDERED: ASPIRIN 325 MG TAB PO STA (07:34)
[2020-04-22] MEDS: INSULIN ASPART (NovoLOG) 100 UNIT/ML VIAL SQ SCH ×4 (07:46→20:44)
[2020-04-22] MEDS: METOPROLOL TARTRATE 12.5 MG TAB PO SCH (07:53)
[2020-04-22] MEDS: LISINOPRIL-HCTZ 10-12.5 MG 1 EACH TAB PO SCH (07:54)
[2020-04-22] MEDS ORDERED: ALPRAZolam 0.25 MG TAB PO PRN (07:55)
[2020-04-22] MEDS ORDERED: ALPRAZolam 0.5 MG TAB PO PRN (07:55)
[2020-04-22] MEDS ORDERED: ATORVASTATIN 80 MG TAB PO STA (07:55)
[2020-04-22] MEDS ORDERED: fentaNYL (PF) 50 MCG/ML 2 ML AMP ONE (09:35)
[2020-04-22] MEDS ORDERED: LIDOCAINE 1% INJ 10MG/ML (20 ML MDV) ONE (09:35)
[2020-04-22] MEDS ORDERED: VERAPAMIL 2.5 MG/ML 2 ML AMP ONE (09:35)
[2020-04-22] MEDS ORDERED: IV FLUID CONTINUATION 950 ML IV ONE (09:53)
[2020-04-22] MEDS ORDERED: LIDOCAINE 1% INJ 10MG/ML (20 ML MDV) SQ ONE (09:53)
[2020-04-22] MEDS ORDERED: fentaNYL (PF) 50 MCG/ML 2 ML AMP IV ONE (09:53)
[2020-04-22] MEDS ORDERED: MIDAZOLAM 2 MG/2 ML VIAL IV ONE ×2 (09:53)
[2020-04-22] MEDS ORDERED: TICAGRELOR 90 MG TAB ONE (10:21)
[2020-04-22] MEDS ORDERED: BIVALIRUDIN 250 MG in SODIUM CHLORIDE 0.9% 50 ML IV ONE (10:26)
[2020-04-22] MEDS ORDERED: TICAGRELOR 90 MG TAB PO ONE (10:26)
[2020-04-22] MEDS ORDERED: BIVALIRUDIN BOLUS 250 MG/50 ML IV ONE (10:26)
--- NOTE | 2020-04-22 10:30 | P.CARDCATH ---
Date of Procedure: 04/22/20 Preoperative Diagnosis: NON-STEMI Postoperative Diagnosis: CRITICAL LESION INVOLVING THE PROXIMAL LAD Procedure(s) Performed: LEFT HEART CATHETERIZATION WITHOUT LEFT VENTRICULOGRAPHY Description of Procedure: HISTORY: This is a 56-year-old female with history of hypertension and diabetes who was admitted to the hospital with complaints of recurrent chest pains and positive troponin. EKG did not reveal any acute changes. Patient is advised to have cardiac catheterization for definite diagnosis. Patient was explained the risks and benefits of the procedure CONSENT:I have discussed the risks, benefits and alternative therapies for the above-mentioned procedure and for both sedation/analgesia as well as necessary blood product administration, if indicated, as they pertain to this patient. The patient has indicated understanding and acceptance of the risks and procedures discussed. PROCEDURE: Patient was brought to the lab in a fasting state. Patient was given some IV sedation. The right wrist is infiltrated and attempts were made to do a cardiac catheterization from the right radial approach. The right radial artery was entered, but we could not be advanced. The procedure was abandoned and it Was done from the right groin approach. The right groin is infiltrated with lidocaine and right femoral artery was entered using Seldinger technique. A 6-Albanian catheter was left in place and selective coronary arteriography was performed. Patient tolerated the procedure well. Patient is found to have a critical lesion involving the proximal right coronary artery and went on to have have stent placement by Dr. Otero No immediate complications were noted Conscious Sedation: Versed 2mg Fentanyl 50 g Duration 27minutes HEMODYNAMICS: The aortic pressure is 128/70. Left ventricular end-diastolic pressure not measured. There was no gradient across the aortic valve SELECTIVE CORONARY ARTERIOGRAPHY: LEFT MAIN: Normal length and free of occlusive disease THE LEFT ANTERIOR DESCENDING CORONARY ARTERY:. Good- sized vessel free of any significant occlusive disease THE LEFT CIRCUMFLEX AND IS CORONARY ARTERY:. Good- sized vessel. Free of occlusive disease THE RIGHT CORONARY ARTERY:. There is a 95% stenosis involving the proximal RCA LEFT VENTRICULOGRAPHY: Not performed FINAL IMPRESSION:. Critical lesion involving the proximal RCA PLAN: Proceed with stent placement being done by Dr. Otero PROGNOSIS: Fair
[2020-04-22] MEDS ORDERED: NITROGLYCERIN 1000MCG/10ML SYRINGE INTRACORON ONE (10:31)
[2020-04-22] MEDS ORDERED: IOPAMIDOL-370 125ML BTL INJ ONE (10:33)
--- NOTE | 2020-04-22 10:38 | P.CRDCN ---
History of Present Illness Consult date: 04/22/20 History of present illness: This is a 50-year-old female with history of diabetes, hypertension, hypothyroidism, and also peripheral neuropathy. Patient is also known to have a cardiac murmur. Yesterday patient was cleaning her garage and started having chest pain and also left shoulder and arm pain. Not associated with any nausea and vomiting.. Her EKG did not reveal any acute changes. Patient doesn't have a systolic murmur and the possibility of aortic stenosis to be considered. Patient is advised to have cardiac catheterization for definitive diagnosis. W e'll also get an echocardiogram done Review of Systems As per the chart Past Medical History Past Medical History: Diabetes Mellitus, GERD/Reflux, Hypertension Additional Past Medical History / Comment(s): migraine, neuropathy History of Any Multi-Drug Resistant Organisms: None Reported Past Surgical History: Cholecystectomy, Hysterectomy Past Psychological History: Anxiety, Depression Smoking Status: Never smoker Past Alcohol Use History: None Reported Past Drug Use History: None Reported Medications and Allergies Home Medications Medication Instructions Recorded Confirmed Type Lisinopril-Hctz 10-12.5 mg 1 tab PO DAILY 02/19/17 04/21/20 History [Zestoretic 10-12.5] Aspirin EC [Ecotrin Low Dose] 243 mg PO ONCE PRN 04/21/20 04/21/20 History DULoxetine HCL [Cymbalta] 60 mg PO DAILY@1600 04/21/20 04/21/20 History Gabapentin [Neurontin] 400 mg PO TID 04/21/20 04/21/20 History Levothyroxine Sodium [Synthroid] 25 mcg PO DAILY 04/21/20 04/21/20 History metFORMIN HCL 1,000 mg PO BID 04/21/20 04/21/20 History Allergies Allergy/AdvReac Type Severity Reaction Status Date / Time clarithromycin [From Biaxin] Allergy Swelling Verified 04/21/20 13:41 Penicillins Allergy Swelling Verified 04/21/20 13:41 Physical Exam Vitals: Vital Signs Temp Pulse Pulse Resp BP BP Pulse Ox 04/22/20 07:41 98.0 F 91 14 125/81 99 04/22/20 03:00 98.4 F 75 18 115/78 98 04/21/20 21:00 97.7 F 80 16 106/73 97 04/21/20 15:38 98.9 F 99 16 108/67 96 04/21/20 14:53 98.9 F 106 H 18 114/71 98 04/21/20 14:00 109 H 16 121/87 96 04/21/20 13:30 113 H 16 122/81 97 04/21/20 13:03 124 H 04/21/20 12:39 97.9 F 132 H 18 146/79 99 Intake and Output 04/21/20 04/22/20 04/22/20 22:59 06:59 14:59 Intake Total 605.833 Balance 605.833 Intake: Intake, IV Titration 65.833 Amount Heparin Sod,Pork in 0.45% 65.833 NaCl 25,000 unit In 0.45 % NaCl 1 250ml.bag @ 9. 585 UNITS/KG/HR 10 mls/hr IV .Q24H [facility] Rx#: [id number] Oral 540 Other: Voiding Method Toilet Toilet Toilet # Voids 1 1 1 Weight 104.326 kg GENERAL EXAM: Patient is alert and oriented and doesn't appear to be in any acute distress HEENT: Normocephalic. Normal reaction of pupils, equal size, normal range of extraocular motion. No erythema or exudates in the throat. NECK: No masses, no nuchal rigidity. CHEST: No chest wall deformity. LUNGS: Equal air entry with no crackles or wheeze. HEART: S1 and S2 normal. Systolic murmur heard in the aortic area ABDOMEN: No hepatosplenomegaly, normal bowel sounds, no guarding or rigidity. SKIN: No rashes CENTRAL NERVOUS SYSTEM: No focal deficits. EXTREMITIES: No cyanosis, clubbing or edema. Results 04/22/20 03:10 04/21/20 12:51 Cardiac Enzymes 04/21/20 04/21/20 04/21/20 Range/Units 12:51 12:51 15:03 AST 75 H (14-36) U/L Troponin I <0.012 0.102 H* (0.000-0.034) ng/mL 04/21/20 Range/Units 19:40 AST (14-36) U/L Troponin I 0.312 H* (0.000-0.034) ng/mL Coagulation 04/21/20 04/21/20 04/22/20 Range/Units 12:51 19:40 03:10 PT 9.8 (9.0-12.0) sec APTT 25.7 38.3 H 57.2 H (22.0-30.0) sec CBC 04/21/20 04/22/20 Range/Units 12:51 03:10 WBC 12.2 H 9.1 (3.8-10.6) k/uL RBC 4.69 3.95 (3.80-5.40) m/uL Hgb 14.9 12.2 (11.4-16.0) gm/dL Hct 45.2 38.3 (34.0-46.0) % Plt Count 513 H 377 (150-450) k/uL Comprehensive Metabolic Panel 04/21/20 Range/Units 12:51 Sodium 137 (137-145) mmol/L Potassium 3.8 (3.5-5.1) mmol/L Chloride 103 (98-107) mmol/L Carbon Dioxide 17 L (22-30) mmol/L BUN 17 (7-17) mg/dL Creatinine 0.98 (0.52-1.04) mg/dL Glucose 203 H (74-99) mg/dL Calcium 10.2 (8.4-10.2) mg/dL AST 75 H (14-36) U/L ALT 76 H (4-34) U/L Alkaline Phosphatase 122 (38-126) U/L Total Protein 8.4 H (6.3-8.2) g/dL Albumin 4.9 (3.5-5.0) g/dL Current Medications Generic Name Dose Route Start Last Admin Trade Name Freq PRN Reason Stop Dose Admin Alprazolam 0.25 mg 04/22/20 07:55 Xanax PO Q6HR PRN Mild Anxiety Alprazolam 0.5 mg 04/22/20 07:55 Xanax PO Q6HR PRN Moderate Anxiety Duloxetine HCl 60 mg 04/21/20 16:00 04/21/20 18:02 Cymbalta PO 60 mg DAILY@1600 [facility] Administration Gabapentin 400 mg 04/21/20 16:30 04/21/20 21:38 Neurontin PO 400 mg TID [facility] Administration Lisinopril/HCTZ 1 each 04/22/20 09:00 04/22/20 07:54 Zestoretic 10-12.5 PO 1 each DAILY [facility] Administration Heparin Sodium (Porcine) 0 unit 04/21/20 14:19 04/21/20 21:37 Heparin IV 2,600 unit PER PROTOCOL PRN Administration Low PTT Protocol Hydromorphone HCl 0.5 mg 04/21/20 14:24 Dilaudid IVP Q3HR PRN Moderate Pain Sodium Chloride 1,000 mls @ 75 mls/hr 04/21/20 13:30 04/21/20 22:49 Saline 0.9% IV 75 mls/hr .[id number] [facility] Administration Heparin Sodium/Sodium Chloride 250 mls @ 10 mls/hr 04/21/20 14:30 04/21/20 21:08 25,000 unit/ Sodium Chloride IV 11.585 units/kg/hr .Q24H [facility] 12.086 mls/hr Titration Protocol 9.585 UNITS/KG/HR Insulin Aspart 0 unit 04/21/20 17:30 04/22/20 07:46 Novolog SQ Not Given ACHS [facility] Protocol Levothyroxine Sodium 25 mcg 04/22/20 06:30 04/22/20 06:09 Synthroid PO 25 mcg DAILY@0630 [facility] Administration Metformin HCl 1,000 mg 04/21/20 17:30 04/22/20 06:06 Glucophage PO Not Given BID-W/MEALS [facility] Metoprolol Tartrate 12.5 mg 04/21/20 21:00 04/22/20 07:53 Lopressor PO 12.5 mg BID [facility] Administration Naloxone HCl 0.2 mg 04/21/20 14:24 Narcan IV Q2M PRN Opioid Reversal Nitroglycerin 0.4 mg 04/21/20 16:19 Nitrostat SUBLINGUAL Q5M PRN Chest Pain Intake and Output 04/21/20 04/22/20 04/22/20 22:59 06:59 14:59 Intake Total 605.833 Balance 605.833 Intake: Intake, IV Titration 65.833 Amount Heparin Sod,Pork in 0.45% 65.833 NaCl 25,000 unit In 0.45 % NaCl 1 250ml.bag @ 9. 585 UNITS/KG/HR 10 mls/hr IV .Q24H [facility] Rx#: [id number] Oral 540 Other: Voiding Method Toilet Toilet Toilet # Voids 1 1 1 Weight 104.326 kg 04/22/20 03:10 04/21/20 12:51 EKG Interpretations (text) Sinus rhythm Assessment and Plan (1) Aortic stenosis Current Visit: Yes Status: Acute Code(s): I35.0 - NONRHEUMATIC AORTIC (VALVE) STENOSIS SNOMED Code(s): 28111499 (2) Unstable angina pectoris Current Visit: Yes Status: Acute Code(s): I20.0 - UNSTABLE ANGINA SNOMED Code(s): 6725795 (3) Hypertension Current Visit: Yes Status: Acute Code(s): I10 - ESSENTIAL (PRIMARY) HYPERTENSION SNOMED Code(s): 65312576 (4) Diabetes mellitus Current Visit: Yes Status: Acute Code(s): E11.9 - TYPE 2 DIABETES MELLITUS WITHOUT COMPLICATIONS SNOMED Code(s): 15688665 Plan: Procedure with cardiac catheterization for definite diagnosis. Further recommendations depend upon the clinical course. Echocardiogram will be done
[2020-04-22] MEDS ORDERED: IOPAMIDOL-370 50ML BTL INJ ONE (10:39)
[2020-04-22] MEDS ORDERED: RX INFO: IV CONTRAST WAS GIVEN 1 EACH MISC MISCELLANE PRN (10:51)
[2020-04-22] MEDS ORDERED: SUMAtriptan succinate 50 MG TAB PO STA (10:53)
[2020-04-22] MEDS ORDERED: SODIUM CHLORIDE 0.9% 1,000 ML IV SCH (11:00)
[2020-04-22 12:21] LABS: Glucose,Whole Blood 93 mg/dL (75-99)
--- NOTE | 2020-04-22 12:22 | CC ---
CARDIAC CATHETERIZATION REPORT Mrs Allen is a 50-year-old female with a history of diabetes and hypertension who presented with symptoms of chest discomfort and mild troponin elevation with no significant EKG changes. She underwent cardiac catheterization by Dr. Singer and there was evidence of obstructive disease involving the proximal right coronary artery. In view of that, recommendation regarding angioplasty and stenting. The procedures as well as risks, and complications were discussed with the patient who is in full understanding and agreement. DESCRIPTION OF THE PROCEDURE: A 6-[place] FR4 guiding catheter was introduced into the system. After cannulating the right coronary ostium, a 0.014 balanced medium weight J-wire was advanced across the lesion, positioned distally. Following that, the patient received intracoronary nitroglycerin and repeat images revealed no evidence of obstructive disease with resolution of her lesion, most likely representing severe vasospastic disease. At that point, the guidewire was withdrawn back in the guiding catheter. Images were repeated. Subsequently, a 6-[place] tight pigtail catheter introduced into the left ventricle and a 30-degree LÓPZE view of the left ventricle was obtained. Following that, catheter was removed. The sheath was sutured in place. The patient was returned to his room in stable condition. Of note, the patient has received Angiomax at the start of the procedure and oral loading dose of Brilinta. FINDINGS: 1. Severe vasospastic disease involving the proximal RCA that resolved with intracoronary nitroglycerin. 2. Normal left ventricular size and systolic function with ejection fraction 60%. No significant mitral regurgitation. 3. No gradient across the aortic valve and left ventricular end-diastolic pressure of 12-16 mm/Hg. RECOMMENDATIONS: The patient will be continued on current therapy. She will receive amlodipine for her vasospastic disease. Continue rest of medical regimen and ultrasound of the heart will be obtained. The elevation of the troponin could be related to the vasospastic disease. Those findings and recommendations were discussed with the patient who is in full understanding and agreement. Duration of sedation is 15 minutes. MMODL / IJN: [id number] /
[2020-04-22] MEDS ORDERED: ATROPINE SULFATE 0.1 MG/ML 10ML SYRINGE ONE (13:28)
[2020-04-22] MEDS: amLODIPine 5 MG TAB PO SCH (14:06)
[2020-04-22] MEDS: GABAPENTIN 400 MG CAP PO SCH ×3 (14:06→20:44)
--- NOTE | 2020-04-22 14:09 | US ---
EXAMINATION TYPE: US abdomen limited DATE OF EXAM: 04/22/2020 COMPARISON: 12/15/2013 CLINICAL HISTORY: Mildly elevated LFTs. EXAM MEASUREMENTS: Liver Length: 20.5 cm Gallbladder Wall: Surgically absent CBD: 0.7 cm Right Kidney: 12.5 x 4.5 x 5.2 cm Patient of large body habitus. Pancreas: wnl Liver: Increased attenuation, decreased visualization of vessels suggestive of fatty infiltrate, hep atomegaly Gallbladder: Surgically absent Evidence for sonographic Greene's sign: no CBD: wnl Right Kidney: wnl IMPRESSION: 1. Hepatomegaly
[2020-04-22] MEDS: DULoxetine HCL 60 MG CAPSULE.DR PO SCH (15:42)
--- NOTE | 2020-04-22 16:46 | P.PN ---
Progress Note - Text Progress Note Date: 04/22/20 Chief Complaint: Heart fluttering History of presenting complaint: This is a pleasant 50-year-old patient of Dr. Rosanna Warren. Chronic stable medical conditions include hypothyroid, diabetes, GERD, hypertension, peripheral neuropathy, evident ecchymosis, anxiety depression. Patient has a known cardiac murmur which according to family doctor has progressively been getting worse. Patient is due to have a workup for the same. Patient and her brother decided to clear up her mother stuff that was in the garage. While interval to was the end of the chore she noticed that her heart started fluttering. Progressively became much worse and started pounding. Then her back left shoulder hours started having discomfort. She went inside the house and took an aspirin. She did broke a breakout in a sweat and somewhat lightheaded. Total bilirubin down to the hospital. No prior cardiac history. Admitted with acute non-Q wave IA. Put on IV heparin. Today-underwent cardiac catheterization. Underwent stent to the RCA. Postprocedure laying in bed. No chest pain. Breathing stable. Review of systems: Was done for constitutional, cardiovascular, GI, pulmonary. relevant finding as above Active Medications Alprazolam (Xanax) 0.25 mg PO Q6HR PRN PRN Reason: Mild Anxiety Alprazolam (Xanax) 0.5 mg PO Q6HR PRN PRN Reason: Moderate Anxiety Amlodipine Besylate (Norvasc) 5 mg PO DAILY [facility] Last Admin: 04/22/20 14:06 Dose: 5 mg Documented by: Aspirin (Aspirin) 81 mg PO DAILY [facility] Atorvastatin Calcium (Lipitor) 40 mg PO DAILY [facility] Duloxetine HCl (Cymbalta) 60 mg PO DAILY@1600 [facility] Last Admin: 04/22/20 15:42 Dose: 60 mg Documented by: Gabapentin (Neurontin) 400 mg PO TID [facility] Last Admin: 04/22/20 15:42 Dose: 400 mg Documented by: Lisinopril/HCTZ (Zestoretic 10-12.5) 1 each PO DAILY [facility] Last Admin: 04/22/20 07:54 Dose: 1 each Documented by: Hydromorphone HCl (Dilaudid) 0.5 mg IVP Q3HR PRN PRN Reason: Moderate Pain Sodium Chloride (Saline 0.9%) 1,000 mls @ 75 mls/hr IV .[id number] [facility] Stop: 04/22/20 17:39 Last Admin: 04/22/20 11:30 Dose: 75 mls/hr Documented by: Insulin Aspart (Novolog) 0 unit SQ ACHS [facility]; Protocol Last Admin: 04/22/20 14:04 Dose: Not Given Documented by: Levothyroxine Sodium (Synthroid) 25 mcg PO DAILY@0630 [facility] Last Admin: 04/22/20 06:09 Dose: 25 mcg Documented by: Metoprolol Tartrate (Lopressor) 12.5 mg PO BID [facility] Last Admin: 04/22/20 07:53 Dose: 12.5 mg Documented by: Miscellaneous Information (Rx Info: Iv Contrast Was Given) 1 each MISCELLANE DAILY PRN PRN Reason: Per Protocol Stop: 04/24/20 10:51 Naloxone HCl (Narcan) 0.2 mg IV Q2M PRN PRN Reason: Opioid Reversal Nitroglycerin (Nitrostat) 0.4 mg SUBLINGUAL Q5M PRN PRN Reason: Chest Pain Physical examination: VITAL SIGNS: 97.7, 88, 16, 152/86, 99% room air GENERAL: Laying in bed, comfortable EYES: Pupils equal. Conjunctiva normal. HEENT: External appearance of nose and ears normal, oral cavity grossly normal. NECK: JVD not raised; masses not palpable. HEART: First and second heart sounds are normal; systolic murmur both in the aorta aVF and in the mitral area. LUNGS: Respiratory rate normal; clear to auscultation. ABDOMEN: Soft, nontender, liver spleen not palpable, no masses palpable. PSYCH: Alert and oriented x3; mood and affect normal. Investigations: White count 9.1 hemoglobin 12.2 Liver ultrasound-hepatomegaly with fatty infiltrate Previous testing White count 12.2 hemoglobin 14.9 platelets 513 potassium 3.8 creatinine 0.98 glucose 203 AST 75 ALT 76 Troponin I less than 0.012, 0.102, 0.312 EKG tracing personally reviewed by me-shows sinus tachycardia, ST segment depression in leads 1, 2 V5 V6 Chest x-ray film personally reviewed by me-borderline cardiomegaly possibly motion artifacts Assessment: -acute non-Q wave myocardial infarction. -Coronary artery disease with RCA lesion. Status post stent -Systolic murmur that has been known as an outpatient -Obesity BMI 34 -Diabetes mellitus type 2 causing peripheral neuropathy -GERD -Essential hypertension, uncontrolled -Anxiety depression not otherwise specified -Hypothyroid -Mildly elevated LFTs-nonalcoholic fatty liver disease Plan: Patient is currently on Norvasc Lipitor aspirin Zestoretic Lopressor. IV fluids. Increase Lopressor to 25 mg twice a day.
[2020-04-22 17:06] LABS: Glucose,Whole Blood 133 mg/dL (75-99)
[2020-04-22] MEDS: METOPROLOL TARTRATE 25 MG TAB PO SCH (20:41)
[2020-04-22 21:09] LABS: Glucose,Whole Blood 159 mg/dL (75-99)
[2020-04-23 04:21] VITALS: RESP 16
[2020-04-23 06:33] LABS: Glucose,Whole Blood 154 mg/dL (75-99)
[2020-04-23] MEDS: LEVOTHYROXINE 25 MCG TAB PO SCH (06:52)
[2020-04-23] MEDS: INSULIN ASPART (NovoLOG) 100 UNIT/ML VIAL SQ SCH ×2 (06:53→13:04)
[2020-04-23] MEDS: GABAPENTIN 400 MG CAP PO SCH (08:16)
[2020-04-23] MEDS: METOPROLOL TARTRATE 25 MG TAB PO SCH (08:16)
[2020-04-23] MEDS: LISINOPRIL-HCTZ 10-12.5 MG 1 EACH TAB PO SCH (08:17)
[2020-04-23] MEDS: amLODIPine 5 MG TAB PO SCH (08:17)
[2020-04-23 08:33] LABS: Basophils # (A) 0.1 k/uL (0-0.2); Basophils % (A) 1 %; Eosinophils # (A) 0.1 k/uL (0-0.7); Eosinophils % (A) 2 %; HCT 39.2 % (34.0-46.0); HGB 12.5 gm/dL (11.4-16.0); Lymphocytes # (A) 2.2 k/uL (1.0-4.8); Lymphocytes % (A) 27 %; MCH 31.1 pg (25.0-35.0); Mean Platelet Volume 6.9; Monocytes # (A) 0.5 k/uL (0-1.0); Monocytes % (A) 6 %; Neutrophils # (A) 5.4 k/uL (1.3-7.7); Neutrophils % (A) 63 %; Platelet Count 395 k/uL (150-450); RBC 4.04 m/uL (3.80-5.40); RDW 14.3 % (11.5-15.5); WBC 8.5 k/uL (3.8-10.6)
[2020-04-23 08:58] LABS: African American GFR (CKD) >90 (>60 ml/min/1.73 sqM); Anion Gap 9 mmol/L; Blood Urea Nitrogen 11 mg/dL (7-17); Calcium 9.3 mg/dL (8.4-10.2); Carbon Dioxide 21 mmol/L (22-30); Chloride 104 mmol/L (98-107); Glucose 141 mg/dL (74-99); Non-African American GFR(CKD) >90 (>60 ml/min/1.73 sqM); Potassium 4.4 mmol/L (3.5-5.1); Sodium 134 mmol/L (137-145)
[2020-04-23] MEDS ORDERED: ATORVASTATIN 40 MG TAB PO SCH (09:00)
[2020-04-23] MEDS ORDERED: ASPIRIN 81 MG PO SCH (09:00)
--- NOTE | 2020-04-23 11:00 | ECHOF ---
Referral Reason:chest pain MEASUREMENTS -------- HEIGHT: 175.3 cm WEIGHT: 104.3 kg BP: IVSd: 1.3 cm (0.6 - 1.1) LVIDd: 3.3 cm (3.9 - 5.3) LVPWd: 1.1 cm (0.6 - 1.1) EDV(Teich): 44 ml IVSs: 1.6 cm LVIDs: 1.7 cm LVPWs: 1.3 cm %IVS Thck: 27 % ESV(Teich): 9 ml EF(Teich): 79 % %FS: 47 % SV(Teich): 35 ml LVOT Diam: 1.5 cm RVIDd: 3.0 cm (< 3.3) IVC: 18.40 mm LIBRADO Planimetry: 1.2 cm LALs A4C: 4.6 cm LAAs A4C: 14.6 cm LAESV A-L A4C: 40 ml LAESV MOD A4C: 38 ml LALs A2C: 5.0 cm LAAs A2C: 15.4 cm LAESV A-L A2C: 41 ml LAESV MOD A2C: 39 ml LAESV(A-L): 42 ml LAESV Index (A-L): 19.08 ml/m Ao Diam: 2.7 cm (2.0 - 3.7) LA Diam: 3.5 cm (2.7 - 3.8) AV Cusp: 1.4 cm (1.5 - 2.6) EPSS: 0.5 cm MV E Dalton: 0.81 m/s MV DecT: 243 ms MV Dec Monroe: 3.3 m/s MV A Dalton: 1.06 m/s MV E/A Ratio: 0.77 MV PHT: 71 ms MR Vmax: 1.66 m/s MR maxP.99 mmHg LVOT Vmax: 1.24 m/s LVOT maxP.18 mmHg LVOT Vmax: 1.31 m/s LVOT Vmean: 1.04 m/s LVOT maxP.81 mmHg LVOT meanP.60 mmHg LVOT Env.Ti: 249 ms LVOT VTI: 26.0 cm AV Vmax: 2.18 m/s AV maxP.93 mmHg LIBRADO Vmax, Pt: 0.9 cm LIBRADO Vmax: 1.0 cm AV Vmax: 2.25 m/s AV Vmean: 1.63 m/s AV maxP.18 mmHg AV meanP.75 mmHg AV Env.Ti: 249 ms AV VTI: 40.7 cm LIBRADO Vmax: 1.0 cm LIBRADO (VTI): 1.1 cm LIBRADO Vmax, Pt: 0.9 cm PV Vmax: 1.67 m/s PV maxP.16 mmHg NE Vmax: 1.59 m/s NE maxP.14 mmHg NE PHT: 202 ms NE DecT: 696 ms NE Dec Monroe: 2.3 m/s TR Vmax: 2.23 m/s TR maxP.90 mmHg RAP: 5.00 mmHg RVSP: 24.90 mmHg MV EF SLOPE: 51.94 mm/s (70 - 150) MV EXCURSION: 14.23 mm (> 18.000) FINDINGS -------- Sinus rhythm. This was a technically good study. The left ventricular size is normal. There is mild concentric left ventricular hypertrophy. Overa ll left ventricular systolic function is normal with, an EF between 55 - 60 %. The diastolic fillin g pattern is normal for the age of the patient 13.60. The right ventricle is normal in size. The left atrial size is normal. Normal LA size by volume 22+/-6 ml/m2. The right atrial size is normal. Interatrial and interventricular septum intact. Aortic valve is trileaflet and is mildly thickened. There is mild aortic stenosis present. Peak/m chris gradient across the Aortic Valve is 20.18mmHg / 11.75mmHg. The mitral valve is normal. The mitral valve leaflets are mildly thickened. Mild mitral annular c alcification present. There is trace mitral regurgitation. The tricuspid valve appears structurally normal. Mild tricuspid regurgitation present. Right vent ricular systolic pressure is normal at < 35 mmHg. Trace/mild (physiologic) pulmonic regurgitation. The aortic root size is normal. Normal inferior vena cava with normal inspiratory collapse consistent with estimated right atrial pre ssure of 5 mmHg. There is no pericardial effusion. CONCLUSIONS -------- 1. The left ventricular size is normal. 2. There is mild concentric left ventricular hypertrophy. 3. Overall left ventricular systolic function is normal with, an EF between 55 - 60 %. 4. The diastolic filling pattern is normal for the age of the patient 13.60 5. Aortic valve is trileaflet and is mildly thickened. 6. There is mild aortic stenosis present. 7. Peak/mean gradient across the Aortic Valve is 20.18mmHg / 11.75mmHg. 8. The mitral valve leaflets are mildly thickened. 9. Mild mitral annular calcification present. 10. There is trace mitral regurgitation. 11. Mild tricuspid regurgitation present. 12. Trace/mild (physiologic) pulmonic regurgitation. VESSEL SCRAPPER HELPER: Meaghan Real RDCS
[2020-04-23 12:29] LABS: Glucose,Whole Blood 112 mg/dL (75-99)
[2020-04-23 13:05] VITALS: BP 116/60; PULSE 88; TEMP 97.6
--- NOTE | 2020-04-23 13:34 | P.PN ---
Subjective Progress Note Date: 04/23/20 CHIEF COMPLAINT: Chest pain HISTORY OF PRESENT ILLNESS: Patient is status post cardiac catheterization with Dr. Singer. Patient was initially thought to have 95% stenosis of the proximal RCA. However, Dr. Otero attempted stent placement and after passing t he wire and giving IV nitroglycerin the right coronary artery appeared normal and the lesion was thought to be spastic. Patient examined this morning at the bedside. She denies chest pain. Denies shortness of breath. Vital signs are stable. She is hoping to be discharged home today. PHYSICAL EXAM: VITAL SIGNS: Reviewed. GENERAL: Well-developed in no acute distress. NECK: Supple. No JVD or thyromegaly LUNGS: Respirations even and unlabored. Lungs essentially clear to auscultation bilaterally. HEART: Regular rate and rhythm. S1 and S2 heard. EXTREMITIES: Normal range of motion. No clubbing or cyanosis. Peripheral pulses intact. No lower extremity edema. Right radial cath attempted site clean and dry. Pulse present. Right groin cath site clean dry. Pulse present. No hematoma noted. ASSESSMENT: 1. Chest pain, s/p cardiac cath revealing normal coronary arteries with likely spasm of RCA 2. Hypertension 3. Diabetes mellitus 4. Aortic stenosis PLAN: Continue current cardiac medications Patient stable for discharge home today from a cardiac perspective Patient to follow up outpatient with Dr. Singer Nurse practitioner note has been reviewed by physician. Signing provider agrees with the documented findings, assessment, and plan of care. Objective - Vital Signs Vital signs: Vital Signs Temp 97.6 F 04/23/20 12:13 Pulse 88 04/23/20 12:13 Resp 16 04/23/20 12:13 BP 116/60 04/23/20 12:13 Pulse Ox 99 04/23/20 12:13 Intake & Output 04/22/20 04/23/20 04/23/20 18:59 06:59 18:59 Intake Total 311 670 Balance 311 670 Weight 104.33 kg Intake: IV 191 10 Invasive Line 1 10 10 Sodium Chloride 0.9% 1, 75 000 ml @ 75 mls/hr IV . [id number] [facility] Rx#:[id number] Oral 120 660 Other: Voiding Method Bedpan Toilet Toilet # Voids 1 1 1 - Labs CBC & Chem 7: 04/23/20 07:40 04/23/20 07:40 Labs: Abnormal Lab Results - Last 24 Hours (Table) 04/22/20 04/22/20 04/23/20 Range/Units 16:37 20:34 06:32 Sodium (137-145) mmol/L Carbon Dioxide (22-30) mmol/L Creatinine (0.52-1.04) mg/dL Glucose (74-99) mg/dL POC Glucose (mg/dL) 133 H 159 H 154 H (75-99) mg/dL 04/23/20 04/23/20 Range/Units 07:40 12:27 Sodium 134 L (137-145) mmol/L Carbon Dioxide 21 L (22-30) mmol/L Creatinine 0.49 L (0.52-1.04) mg/dL Glucose 141 H (74-99) mg/dL POC Glucose (mg/dL) 112 H (75-99) mg/dL
--- NOTE | 2020-04-23 21:50 | P.DS ---
Providers Date of admission: 04/21/20 14:41 Expected date of discharge: 04/23/20 Attending physician: Jasiel Brown Consults: 04/21/20 14:25 Consult Physician Routine Consulting Provider: Lashanda Otero Consult Reason/Comments: UA Do you want consulting provider notified?: Yes Primary care physician: Lang Kelvin [facility] Course: Chief Complaint: Heart fluttering History of presenting complaint: This is a pleasant 50-year-old patient of Dr. Rosanna Warren. Chronic stable medical conditions include hypothyroid, diabetes, GERD, hypertension, peripheral neuropathy, evident ecchymosis, anxiety depression. Patient has a known cardiac murmur which according to family doctor has progressively been getting worse. Patient is due to have a workup for the same. Patient and her brother decided to clear up her mother stuff that was in the garage. While interval to was the end of the chore she noticed that her heart started fluttering. Progressively became much worse and started pounding. Then her back left shoulder hours started having discomfort. She went inside the house and took an aspirin. She did broke a breakout in a sweat and somewhat lightheaded. Total bilirubin down to the hospital. No prior cardiac history. Admitted with acute non-Q wave NC. Put on IV heparin.underwent cardiac catheterization. - stent to the RCA Today-. Laying in bed. Comfortable. Discussed the results of abdominal ultrasound. Hepatic steatosis. Told her to follow for GI. Questions answered. Discussion and discharge planning more than 35 minutes Consultation: Dr. Singer/ from cardiology Physical examination: VITAL SIGNS: GENERAL: Laying in bed, comfortable EYES: Pupils equal. Conjunctiva normal. HEENT: External appearance of nose and ears normal, oral cavity grossly normal. NECK: JVD not raised; masses not palpable. HEART: First and second heart sounds are normal; systolic murmur both in the aorta aVF and in the mitral area. LUNGS: Respiratory rate normal; clear to auscultation. ABDOMEN: Soft, nontender, liver spleen not palpable, no masses palpable. PSYCH: Alert and oriented x3; mood and affect normal. Investigations: White count 9.1 hemoglobin 12.2 Liver ultrasound-hepatomegaly with fatty infiltrate Previous testing White count 12.2 hemoglobin 14.9 platelets 513 potassium 3.8 creatinine 0.98 glucose 203 AST 75 ALT 76 Troponin I less than 0.012, 0.102, 0.312 EKG tracing personally reviewed by me-shows sinus tachycardia, ST segment depression in leads 1, 2 V5 V6 Chest x-ray film personally reviewed by me-borderline cardiomegaly possibly motion artifacts 2-D echocardiogram-EF 55-60% mild aortic stenosis. Assessment: -acute non-Q wave myocardial infarction. -Coronary artery disease with RCA lesion.-stent -Systolic murmur that has been known as an outpatient-mild aortic stenosis -Obesity BMI 34 -Diabetes mellitus type 2 causing peripheral neuropathy -GERD -Essential hypertension, uncontrolled -Anxiety depression not otherwise specified -Hypothyroid -Mildly elevated LFTs-nonalcoholic fatty liver [id number] with GI as an outpatient. Disposition: Home Patient Condition at Discharge: Stable Plan - Discharge Summary Discharge Rx Participant: No New Discharge Prescriptions: New Aspirin 81 mg PO DAILY #30 chew Atorvastatin [Lipitor] 40 mg PO DAILY #30 tab Metoprolol Tartrate [Lopressor] 25 mg PO BID #60 tab amLODIPine [Norvasc] 5 mg PO DAILY #30 tab Continue Lisinopril-Hctz 10-12.5 mg [Zestoretic 10-12.5] 1 tab PO DAILY Gabapentin [Neurontin] 400 mg PO TID metFORMIN HCL 1,000 mg PO BID Levothyroxine Sodium [Synthroid] 25 mcg PO DAILY DULoxetine HCL [Cymbalta] 60 mg PO DAILY@1600 Discontinued Aspirin EC [Ecotrin Low Dose] 243 mg PO ONCE PRN PRN Reason: Chest Pain Discharge Medication List Lisinopril-Hctz 10-12.5 mg [Zestoretic 10-12.5] 1 tab PO DAILY 02/19/17 [History] DULoxetine HCL [Cymbalta] 60 mg PO DAILY@1600 04/21/20 [History] Gabapentin [Neurontin] 400 mg PO TID 04/21/20 [History] Levothyroxine Sodium [Synthroid] 25 mcg PO DAILY 04/21/20 [History] metFORMIN HCL 1,000 mg PO BID 04/21/20 [History] Aspirin 81 mg PO DAILY #30 chew 04/23/20 [Rx] Atorvastatin [Lipitor] 40 mg PO DAILY #30 tab 04/23/20 [Rx] Metoprolol Tartrate [Lopressor] 25 mg PO BID #60 tab 04/23/20 [Rx] amLODIPine [Norvasc] 5 mg PO DAILY #30 tab 04/23/20 [Rx] Follow up Appointment(s)/Referral(s): Lang Warren DO [Primary Care Provider] - 05/01/20 1:30 pm Bryant Singer MD [STAFF PHYSICIAN] - 05/03/20 2:15 pm Patient Instructions/Handouts: *Surgery [facility] - After Heart Catheterization - Steam Heating Installer Instructions, Heart Attack (DC), Heart Healthy Diet (ED) Discharge Disposition: HOME SELF-CARE
== END 2020-04-23 15:01 | disposition home or self-care (01) ==
LOC: EC 12:21 → 3NCARDOBS 14:41 → 3SCARD 04-22 11:04
PROVIDERS: ADMIT Hospitalist; ATTEND Hospitalist
DX: I21.4 Non-ST elevation (NSTEMI) myocardial infarction (principal); I25.110 Atherosclerotic heart disease of native coronary artery with unstable angina pectoris; I73.89 Other specified peripheral vascular diseases; I35.0 Nonrheumatic aortic (valve) stenosis; I10 Essential (primary) hypertension; D72.829 Elevated white blood cell count, unspecified; E03.9 Hypothyroidism, unspecified; E66.9 Obesity, unspecified; Z68.34 Body mass index [BMI] 34.0-34.9, adult; E11.42 Type 2 diabetes mellitus with diabetic polyneuropathy; K76.0 Fatty (change of) liver, not elsewhere classified; G43.909 Migraine, unspecified, not intractable, without status migrainosus; R01.1 Cardiac murmur, unspecified; K21.9 Gastro-esophageal reflux disease without esophagitis; Z90.49 Acquired absence of other specified parts of digestive tract; R58 Hemorrhage, not elsewhere classified; Z90.710 Acquired absence of both cervix and uterus; F41.9 Anxiety disorder, unspecified; F32.9 Major depressive disorder, single episode, unspecified; Z79.84 Long term (current) use of oral hypoglycemic drugs; Z79.82 Long term (current) use of aspirin; Z79.890 Hormone replacement therapy; Z79.899 Other long term (current) drug therapy; Z88.1 Allergy status to other antibiotic agents; Z88.0 Allergy status to penicillin
CPT/HCPCS: 93005 ×2; 99291; 36415; 93306; 93458; 80053; 80048; 83690; 83735; 84484; 85025 ×3; 85610; 85730 ×2; 71045; 76705; 71275; G0378 ×4; C1769 ×3; C1887; C1894 ×2; J2250; J2060; J1644 ×2; J2001; J3010; J0583; Q9967 ×3

== ENCOUNTER 2020-08-22 09:28 | Emergency (ER) | payer BC ==
[2020-08-22 09:39] VITALS: RESP 18
[2020-08-22] MEDS ORDERED: SODIUM CHLORIDE 0.9% 1,000 ML IV STA (09:45)
[2020-08-22] MEDS ORDERED: ONDANSETRON 4 MG/2 ML VIAL IVP STA (09:45)
--- NOTE | 2020-08-22 09:47 | ED ---
General Adult HPI - General Chief complaint: Weakness Stated complaint: weakness Time Seen by Provider: 08/22/20 09:33 Source: patient, EMS Mode of arrival: EMS Limitations: no limitations - History of Present Illness Initial comments: Dictation was produced using [employer] dictation software. please excuse any grammatical, word or spelling errors. This patient was cared for during a federal and state declared state of emergency secondary to Covid 19 Chief Complaint: 50-year-old female transferred from urgent care for presyncope History of Present Illness: 80-year-old female she was evaluated at [facility]. Patient works for [employer]. She states that her employer requires him to get tested for Covid if he started having symptoms. She was there got tested for occult an influenza. Both of this test came back negative. She had a rapid Covid test that was negative. She was on her way out when she all of a sudden felt very faint. She states she laid down on the ground. She denies any loss of consciousness. She has no pain complaints at that time. She was seen at [facility] for one week of on and off fevers. Cough and headaches. The ROS documented in this emergency department record has been reviewed and confirmed by me. Those systems with pertinent positive or negative responses have been documented in the HPI. All other systems are other negative and/or noncontributory. PHYSICAL EXAM: General Impression: Alert and oriented x3, not in acute distress HEENT: Normocephalic atraumatic, extra-ocular movements intact, pupils equal and reactive to light bilaterally, mucous membranes moist. Cardiovascular: Heart regular rate and rhythm Chest: Able to complete full sentences, no retractions, no tachypnea Abdomen: abdomen soft, non-tender, non-distended, no organomegaly Musculoskeletal: Pulses present and equal in all extremities, no peripheral edema Motor: no focal deficits noted Neurological: CN II-XII grossly intact, no focal motor or sensory deficits noted Skin: Intact with no visualized rashes Psych: Normal affect and mood ED course: 50-year-old female presents with episode of presyncope. As upon arrival are within acceptable limits. EKG is benign Laboratory evaluation obtained. CBC unremarkable. Metabolic panel shows mild anion gap acidosis. Urinalysis is negative. Patient given intravenous fluids. Chest x-ray shows pneumonia. Patient is not hypoxic. She is showing signs of respiratory distress. Patient agreeable for discharge. Patient given prescription for azithromycin. She is told to discontinue her sinusitis antibiotics. Clinical presentation either bacterial pneumonia versus Covid 19. Pending rapid coronavirus PCR. EKG interpretation: Ventricular rate 83, normal sinus rhythm,. Interval and 60, QRS 84, QTC 4:30. No MA prolongation, no QTC prolongation, no ST or T-wave changes noted. . Overall, this EKG is unremarkable - Related Data Home Medications Medication Instructions Recorded Confirmed DULoxetine HCL [Cymbalta] 60 mg PO DAILY@1600 04/21/20 08/22/20 Gabapentin [Neurontin] 400 mg PO TID 04/21/20 08/22/20 Levothyroxine Sodium [Synthroid] 25 mcg PO DAILY 04/21/20 08/22/20 metFORMIN HCL 1,000 mg PO BID 04/21/20 08/22/20 Doxycycline Hyclate 100 mg PO BID 08/22/20 08/22/20 Lisinopril-Hctz 20-25 mg 1 tab PO DAILY 08/22/20 08/22/20 [Zestoretic 20-25] Previous Rx's Medication Instructions Recorded Aspirin 81 mg PO DAILY #30 chew 04/23/20 Atorvastatin [Lipitor] 40 mg PO DAILY #30 tab 04/23/20 Metoprolol Tartrate [Lopressor] 25 mg PO BID #60 tab 04/23/20 amLODIPine [Norvasc] 5 mg PO DAILY #30 tab 04/23/20 Levofloxacin [Levaquin] 750 mg PO DAILY 5 Days #5 tab 08/22/20 Allergies Allergy/AdvReac Type Severity Reaction Status Date / Time clarithromycin [From Biaxin] Allergy Swelling Verified 08/22/20 10:40 Penicillins Allergy Swelling Verified 08/22/20 10:40 Review of Systems ROS Statement: Those systems with pertinent positive or pertinent negative responses have been documented in the HPI. ROS Other: All systems not noted in ROS Statement are negative. Past Medical History Past Medical History: Diabetes Mellitus, GERD/Reflux, Hypertension Additional Past Medical History / Comment(s): migraine, neuropathy History of Any Multi-Drug Resistant Organisms: None Reported Past Surgical History: Cholecystectomy, Hysterectomy Past Psychological History: Anxiety, Depression Smoking Status: Never smoker Past Alcohol Use History: None Reported Past Drug Use History: Marijuana General Exam Limitations: no limitations Course Vital Signs 12/08/22/20 08/22/20 09:31 10:14 10:57 Temperature 98.9 F 98.2 F Pulse Rate 89 86 91 Respiratory 18 18 18 Rate Blood Pressure 129/80 101/76 129/86 O2 Sat by Pulse 96 97 96 Oximetry Medical Decision Making - Lab Data Result diagrams: 08/22/20 09:37 08/22/20 09:37 Lab Results 08/22/20 08/22/20 08/22/20 Range/Units 09:37 09:37 10:59 WBC 8.3 (3.8-10.6) k/uL RBC 4.67 (3.80-5.40) m/uL Hgb 14.3 (11.4-16.0) gm/dL Hct 44.1 (34.0-46.0) % MCV 94.4 (80.0-100.0) fL MCH 30.7 (25.0-35.0) pg MCHC 32.5 (31.0-37.0) g/dL RDW 14.5 (11.5-15.5) % Plt Count 396 (150-450) k/uL MPV 7.2 Neutrophils % 65 % Lymphocytes % 27 % Monocytes % 6 % Eosinophils % 0 % Basophils % 0 % Neutrophils # 5.4 (1.3-7.7) k/uL Lymphocytes # 2.2 (1.0-4.8) k/uL Monocytes # 0.5 (0-1.0) k/uL Eosinophils # 0.0 (0-0.7) k/uL Basophils # 0.0 (0-0.2) k/uL Sodium 135 L (137-145) mmol/L Potassium 3.7 (3.5-5.1) mmol/L Chloride 102 (98-107) mmol/L Carbon Dioxide 20 L (22-30) mmol/L Anion Gap 13 mmol/L BUN 27 H (7-17) mg/dL Creatinine 0.78 (0.52-1.04) mg/dL Est GFR (CKD-EPI)AfAm >90 (>60 ml/min/1.73 sqM) Est GFR (CKD-EPI)NonAf 88 (>60 ml/min/1.73 sqM) Glucose 152 H (74-99) mg/dL Calcium 9.2 (8.4-10.2) mg/dL Magnesium 1.6 (1.6-2.3) mg/dL C-Reactive Protein 27.7 H (<10.0) mg/L Urine Color Yellow Urine Appearance Clear (Clear) Urine pH 6.0 (5.0-8.0) Ur Specific Mcclellan 1.020 (1.001-1.035) Urine Protein Trace H (Negative) Urine Glucose (UA) Negative (Negative) Urine Ketones Negative (Negative) Urine Blood Negative (Negative) Urine Nitrite Negative (Negative) Urine Bilirubin Negative (Negative) Urine Urobilinogen <2.0 (<2.0) mg/dL Ur Leukocyte Esterase Negative (Negative) Disposition Clinical Impression: Dyspnea Disposition: HOME SELF-CARE Condition: Fair Instructions (If sedation given, give patient instructions): Viral Pneumonia (ED), Bacterial Pneumonia (ED) Additional Instructions: Today you were evaluated for symptoms consistent with upper respiratory infection. There is concern that perhaps your symptomatology may represent Covid 19. Your are stable for discharge, however it is instructed to to seek immediate medical attention especially if you develop worsening symptoms especially respiratory distress. In the meantime please remain in quarantine for 14 days. For any other questions please contact [facility] for here in emergency department or [facility] at [phone] Prescriptions: Levofloxacin [Levaquin] 750 mg PO DAILY 5 Days #5 tab Is patient prescribed a controlled substance at d/c from ED?: No Referrals: Lang Warren DO [Primary Care Provider] - 1-2 days Time of Disposition: 11:38
[2020-08-22 10:00] LABS: Basophils % (A) 0 %; Eosinophils % (A) 0 %; HCT 44.1 % (34.0-46.0); HGB 14.3 gm/dL (11.4-16.0); Lymphocytes # (A) 2.2 k/uL (1.0-4.8); Lymphocytes % (A) 27 %; MCH 30.7 pg (25.0-35.0); MCHC 32.5 g/dL (31.0-37.0); MCV 94.4 fL (80.0-100.0); Mean Platelet Volume 7.2; Monocytes # (A) 0.5 k/uL (0-1.0); Monocytes % (A) 6 %; Neutrophils # (A) 5.4 k/uL (1.3-7.7); Neutrophils % (A) 65 %; Platelet Count 396 k/uL (150-450); RBC 4.67 m/uL (3.80-5.40); RDW 14.5 % (11.5-15.5); WBC 8.3 k/uL (3.8-10.6)
[2020-08-22 10:12] LABS: African American GFR (CKD) >90 (>60 ml/min/1.73 sqM); Anion Gap 13 mmol/L; Blood Urea Nitrogen 27 mg/dL (7-17); C Reactive Protein 27.7 mg/L (<10.0); Calcium 9.2 mg/dL (8.4-10.2); Carbon Dioxide 20 mmol/L (22-30); Chloride 102 mmol/L (98-107); Glucose 152 mg/dL (74-99); Magnesium 1.6 mg/dL (1.6-2.3); Non-African American GFR(CKD) 88 (>60 ml/min/1.73 sqM); Potassium 3.7 mmol/L (3.5-5.1); Sodium 135 mmol/L (137-145)
--- NOTE | 2020-08-22 10:16 | XR ---
EXAMINATION TYPE: XR chest 1V portable DATE OF EXAM: 08/22/2020 COMPARISON: Prior chest x-ray 04/21/2020 HISTORY: Cough and fever TECHNIQUE: Single frontal view of the chest is obtained. FINDINGS: Patchy densities present in the left mid lung. There is no pneumothorax or pleural effusio n. Cardiomediastinal silhouette is within normal limits. There are overlying cardiac leads. Bone mine ralization is normal. IMPRESSION: Correlate for pneumonia, follow-up suggested
[2020-08-22 11:23] LABS: Appearance,Urine Clear (Clear); Bilirubin,Urine Negative (Negative); Blood,Urine Negative (Negative); Color,Urine Yellow; Glucose,Urine (UA) Negative (Negative); Ketones,Urine Negative (Negative); Leukocyte Esterase,Urine Negative (Negative); Nitrite,Urine Negative (Negative); Protein,Urine Trace (Negative); Urobilinogen,Urine <2.0 mg/dL (<2.0)
[2020-08-22] MEDS ORDERED: DEXAMETHASONE SOD PHOSPHATE 10 MG/ML 1 ML VIAL IV STA (11:38)
[2020-08-22 11:53] VITALS: BP 120/77; PULSE 89; TEMP 98.5
== END 2020-08-22 11:59 | disposition home or self-care (01) ==
LOC: EC 09:28 → SUPCPDRO 09:28 → EC 11:59
DX: R06.00 Dyspnea, unspecified (principal); R53.1 Weakness; R55 Syncope and collapse; F41.9 Anxiety disorder, unspecified; F32.9 Major depressive disorder, single episode, unspecified; E11.40 Type 2 diabetes mellitus with diabetic neuropathy, unspecified; I10 Essential (primary) hypertension; Z79.890 Hormone replacement therapy; Z79.84 Long term (current) use of oral hypoglycemic drugs; Z79.899 Other long term (current) drug therapy; Z88.0 Allergy status to penicillin; Z88.1 Allergy status to other antibiotic agents; Z20.828 Contact with and (suspected) exposure to other viral communicable diseases
CPT/HCPCS: 36415; 93005; 80048; 83735; 85025; 86140; 81003; 71045; 99285; 96374; 96375; 96361; U0003; J1100; J2405

== ENCOUNTER → 2022-08-06 | Outpatient (CLI) | payer OTHER ==
--- NOTE | 2022-08-07 12:58 | MM ---
Reason for Exam: Screening (asymptomatic). Last mammogram was performed 4 year(s) and 4 month(s) ago. Patient History: Menarche at age 9. First Full-Term at age 21. Left ovary removed at age 42. Right ovary removed at age 42. Hysterectomy at age 42. Postmenopausal. Hormonal Contraceptives for 3 years from age 16 until age 19. Maternal aunt had breast cancer, age 40. Risk Values: Donna 5 year model risk: 1.1%. NCI Lifetime model risk: 8.2%. Prior Study Comparison: 03/21/2015 Bilateral Screening Mammogram, [facility]. 12/23/2016 Bilateral Diagnostic Mammogram, [facility]. 04/09/2018 Bilateral Screening Mammogram, [facility]. Tissue Density: The breast tissue is almost entirely fat. Findings: Analyzed By CAD. Benign-appearing stable intramammary lymph node appears to be present in the upper outer right mid breast. Small intramammary BB in the right axillary tail. No significant interval changes are evident. Chronic nodularity bilaterally is stable. No suspicious groups of microcalcifications, spiculated or lobular masses, architectural distortion or other secondary signs of malignancy are mammographically apparent. Overall Assessment: Benign, BI-RAD 2 Management: Screening Mammogram of both breasts in 1 year. A negative mammogram report should not preclude additional follow up of suspicious palpable abnormalities. Patient should continue monthly self breast exam. A clinical breast exam by your physician is recommended on an annual basis and results should be correlated with mammographic findings. Electronically signed and approved by: Pedro Arevalo D.O. Radiologis
== END | disposition home or self-care (01) ==
LOC: RADMAMWWP 16:13
PROVIDERS: ATTEND Family Medicine
DX: Z12.31 Encounter for screening mammogram for malignant neoplasm of breast (principal); Z78.0 Asymptomatic menopausal state; Z80.3 Family history of malignant neoplasm of breast; Z90.721 Acquired absence of ovaries, unilateral
CPT/HCPCS: 77067

== ENCOUNTER → 2022-12-20 | Outpatient (CLI) | payer OTHER ==
--- NOTE | 2022-12-20 07:43 | CT ---
EXAMINATION TYPE: CT abdomen pelvis wo con DATE OF EXAM: 12/20/2022 COMPARISON: 02/19/2017 HISTORY: Hematuria and generalized abdominal pain. CT DLP: 844.2 mGycm Automated exposure control for dose reduction was used. TECHNIQUE: Helical acquisition of images was performed from the lung bases through the pelvis. FINDINGS: The lung bases are clear. There are no renal calcifications or hydronephrosis. There are surgical absence of gallbladder. There is no organomegaly involving the liver, pancreas, spleen or adrenal glands. The caliber the abdominal aorta is normal. The bowel loops are normal in caliber is no dilatation or obstruction. There is no inflammatory caballero es in the mesentery or bowel wall. There is diverticulosis sigmoid colon without CT evidence of diver ticulitis. There is no free intraperitoneal air or fluid. There is a persistent midline hernia containing fat and portion of the colon but there is no obstruct ion or strangulation or edema within the colon. There is no pelvic mass or adenopathy. The osseous structures are intact. IMPRESSION: No acute changes within the abdomen or pelvis. Incidental findings as described above
== END | disposition home or self-care (01) ==
LOC: RADCTMAIN 07:00
PROVIDERS: ATTEND Family Medicine
DX: R10.84 Generalized abdominal pain (principal); Z90.49 Acquired absence of other specified parts of digestive tract
CPT/HCPCS: 74176

== ENCOUNTER 2023-11-03 20:29 | Emergency (ER) | payer OTHER ==
[2023-11-03 21:01] VITALS: TEMP 98.6
--- NOTE | 2023-11-03 21:08 | ED ---
Abdominal Pain HPI - General Chief Complaint: Abdominal Pain Stated Complaint: Constipation Time Seen by Provider: 11/03/23 20:54 Source: patient Mode of arrival: ambulatory Limitations: no limitations - History of Present Illness Initial Comments: 53-year-old female presenting to the ED with a chief complaint of constipation. Patient states that she has not been able to have a bowel movement for the past week. Patient reports she took a dose of MiraLAX yesterday and despite this has been unable to have a bowel movement prompting presentation to the ED for further evaluation. Denies abdominal pain. No nausea or vomiting. Patient reports that she has recently been put on a protein diet for upcoming hernia surgery. No chest pain or shortness of breath. No other complaints at this time. - Related Data Home Medications Medication Instructions Recorded Confirmed DULoxetine HCL [Cymbalta] 60 mg PO QAM 04/21/20 10/24/22 Gabapentin [Neurontin] 400 mg PO TID PRN 04/21/20 10/29/22 Levothyroxine Sodium [Synthroid] 25 mcg PO QAM 04/21/20 10/24/22 Lisinopril-Hctz 20-25 mg 1 tab PO DAILY 08/22/20 10/29/22 [Zestoretic 20-25] Atorvastatin [Lipitor] 80 mg PO DAILY 10/24/22 10/24/22 Dapagliflozin Propanediol [Farxiga] 10 mg PO DAILY 10/24/22 10/24/22 Omeprazole Magnesium [PriLOSEC OTC] 20 mg PO DAILY 10/24/22 10/24/22 amLODIPine [Norvasc] 5 mg PO QAM 10/24/22 10/29/22 diphenhydrAMINE [Benadryl] 25 mg PO QAM 10/24/22 10/24/22 Previous Rx's Medication Instructions Recorded Aspirin 81 mg PO DAILY #30 chew 04/23/20 Allergies Allergy/AdvReac Type Severity Reaction Status Date / Time clarithromycin [From Biaxin] Allergy Swelling Verified 11/03/23 20:50 Penicillins Allergy Swelling Verified 11/03/23 20:50 Review of Systems ROS Statement: Those systems with pertinent positive or pertinent negative responses have been documented in the HPI. ROS Other: All systems not noted in ROS Statement are negative. Past Medical History Past Medical History: Diabetes Mellitus, GERD/Reflux, Hyperlipidemia, Hypertension, Liver Disease, Myocardial Infarction ([place]), Neurologic Disorder, Osteoarthritis (OA), Pneumonia, Thyroid Disorder Additional Past Medical History / Comment(s): Neuropathy/numbness in bilateral feet, fatty liver, hx migraines, none in one year, hx Pneumonia 2 yrs ago, hx Shingles August 2022. Last Myocardial Infarction Date:: 2020 History of Any Multi-Drug Resistant Organisms: None Reported Past Surgical History: Cholecystectomy, Ear Surgery, Hysterectomy Past Anesthesia/Blood Transfusion Reactions: Motion Sickness Additional Past Anesthesia/Blood Transfusion Reaction / Comment(s): "Get a rash from Anesthesia sometimes, they usually give me benadyrl with anesthesia". Past Psychological History: Anxiety, Depression Smoking Status: Never smoker Past Alcohol Use History: None Reported Past Drug Use History: Marijuana - Past Family History Father Family Medical History: Cancer General Exam Limitations: no limitations General appearance: alert, in no apparent distress Eye exam: Present: normal appearance Neck exam: Present: normal inspection Respiratory exam: Present: normal lung sounds bilaterally Cardiovascular Exam: Present: regular rate, normal rhythm GI/Abdominal exam: Present: soft, normal bowel sounds. Absent: distended, tenderness, guarding, rebound, rigid Neurological exam: Present: alert, oriented X3 Skin exam: Present: warm, dry Course Vital Signs 11/03/23 11/03/23 20:47 22:00 Temperature 98.6 F Pulse Rate 117 H 77 Respiratory 18 14 Rate Blood Pressure 117/67 109/63 O2 Sat by Pulse 94 L 96 Oximetry Medical Decision Making - Medical Decision Making Was pt. sent in by a medical professional or institution (, PA, TOOL SETTER APPRENTICE, urgent care, hospital, or [place] health care facility...) When possible be specific @ -No Did you speak to anyone other than the patient for history (EMS, parent, family, police, friend...)? What history was obtained from this source @ -No Did you review nursing and triage notes (agree or disagree)? Why? @ -I reviewed and agree with nursing and triage notes Were old charts reviewed (outside hosp., previous admission, EMS record, old EKG, old radiological studies, urgent care reports/EKG's, [place] health care facility records)? Report findings @ -No old charts were reviewed Differential Diagnosis (chest pain, altered mental status, abdominal pain women, abdominal pain men, vaginal bleeding, weakness, fever, dyspnea, syncope, headache, dizziness, GI bleed, back pain, seizure, CVA, palpatations, mental health, musculoskeletal)? @ -Differential Abdominal Pain Women: Appendicitis, Cholecystitis, diverticulosis, ischemic bowel, pancreatitis, hepatitis, UTI, gastroenteritis, AAA, incarcerated hernia, bowel obstruction, constipation, inflammatory bowel, hepatitis, peptic ulcer disease, splenic infarction, perforated viscus, vulvitis, ovarian torsion, PID, kidney stone, pl acenta abruption, this is not meant to be an all-inclusive list EKG interpreted by me (3pts min.). @ -None X-rays interpreted by me (1pt min.). @ -KUB interpreted me which showed moderate stool. No evidence of obstruction. CT interpreted by me (1pt min.). @ -None done U/S interpreted by me (1pt. min.). @ -None done What testing was considered but not performed or refused? (CT, X-rays, U/S, labs)? Why? @ -None What meds were considered but not given or refused? Why? @ -None Did you discuss the management of the patient with other professionals (gila chin i.eKarlos Sullivan, PA, TOOL SETTER APPRENTICE, lab, RT, psych nurse, rn social services, forming roll operator, teacher, protective services officer, pillowcase cutter)? Give summary @ -No Was smoking cessation discussed for >3mins.? @ -No Was critical care preformed (if so, how long)? @ -No Were there social determinants of health that impacted care today? How? (Homelessness, low income, unemployed, alcoholism, drug addiction, transportation, low edu. Level, literacy, decrease access to med. care, [facility], rehab)? @ -No Was there de-escalation of care discussed even if they declined (Discuss DNR or withdrawal of care, Hospice)? DNR status @ -No What co-morbidities impacted this encounter? (DM, HTN, Smoking, COPD, CAD, Cancer, CVA, ARF, Chemo, Hep., AIDS, mental health diagnosis, sleep apnea, morbid obesity)? @ -None Was patient admitted / discharged? Hospital course, mention meds given and route, prescriptions, significant lab abnormalities, going to OR and other pertinent info. @ -Discharge 53-year-old female presenting to the ED with complaints of constipation. Has been unable to have a bowel movement for the past week or so. Notes that she has recently been put in all protein diet secondary to upcoming hernia surgery. Patient was provided an enema here and she was able to have a bowel movement and feels significantly improved. Advised to continue stool softeners as needed and follow-up with her PCP. At this time vital signs stable afebrile. Discharged home in stable condition. Discussed return precautions with patient who verbalized agreement. Undiagnosed new problem with uncertain prognosis? @ -No Drug Therapy requiring intensive monitoring for toxicity (Heparin, Nitro, Insulin, Cardizem)? @ -No Were any procedures done? @ -No Diagnosis/symptom? @ -Constipation Acute, or Chronic, or Acute on Chronic? @ -Acute Uncomplicated (without systemic symptoms) or Complicated (systemic symptoms)? @ -Uncomplicated Side effects of treatment? @ -No Exacerbation, Progression, or Severe Exacerbation? @ -No Poses a threat to life or bodily function? How? (Chest pain, [place], [place], pneumonia, PE, COPD, DKA, ARF, appy, cholecystitis, CVA, Diverticulitis, Homicidal, Suicidal, threat to staff... and all critical care pts) @ -No Disposition Clinical Impression: Constipation Disposition: HOME SELF-CARE Condition: Good Instructions (If sedation given, give patient instructions): Constipation (ED) Additional Instructions: Please return to the Emergency Department if symptoms worsen or any other concerns. Please follow-up with your PCP. Take stool softeners as needed. Is patient prescribed a controlled substance at d/c from ED?: No Referrals: Lang Warren DO [Primary Care Provider] - 1-2 days Time of Disposition: 23:00
[2023-11-03 22:05] VITALS: RESP 14
--- NOTE | 2023-11-03 23:11 | XR ---
EXAMINATION TYPE: XR KUB DATE OF EXAM: 11/03/2023 9:35 PM CLINICAL INDICATION:Female, 53 years old with history of constpation r/o obstruction; [facility] COMPARISON: None. TECHNIQUE: 2 views of the abdomen and pelvis labeled upright are obtained FINDINGS: There is a moderate amount of stool in the colon. The bowel gas pattern is nonspecific, likely nonobs tructive without significantly dilated loops of bowel seen. No evidence of organomegaly. No evidence of pneumoperitoneum. No pathologic calcifications are seen. Osseous structures appear intact. Modera te degenerative changes of the visualized spine. Slight asymmetric elevation of the right hemidiaphra gm. Visualized lung bases are free of consolidation. IMPRESSION: Moderate colonic stool. Nonspecific, likely nonobstructive bowel gas pattern.
[2023-11-03] MEDS: NA PHOS,M-B/NA PHOS,DI-BA 133 ML ENEMA RECTAL ONE (23:14)
[2023-11-04 00:59] VITALS: BP 98/68; PULSE 76
== END 2023-11-04 00:28 | disposition home or self-care (01) ==
LOC: EC 20:29
DX: K59.00 Constipation, unspecified (principal); E11.9 Type 2 diabetes mellitus without complications; I10 Essential (primary) hypertension; I25.2 Old myocardial infarction; E07.9 Disorder of thyroid, unspecified; E78.5 Hyperlipidemia, unspecified; K21.9 Gastro-esophageal reflux disease without esophagitis; F12.90 Cannabis use, unspecified, uncomplicated; Z86.59 Personal history of other mental and behavioral disorders; Z79.890 Hormone replacement therapy; Z79.84 Long term (current) use of oral hypoglycemic drugs; Z79.899 Other long term (current) drug therapy; Z88.0 Allergy status to penicillin; Z88.8 Allergy status to other drugs, medicaments and biological substances
CPT/HCPCS: 74018; 99284

== ENCOUNTER → 2023-11-11 | Outpatient (CLI) | payer OTHER ==
--- NOTE | 2023-11-11 11:11 | FL ---
EXAMINATION TYPE: FL barium swallow DATE OF EXAM: 11/11/2023 9:43 AM COMPARISON: CT 12/20/2022 CLINICAL INDICATION:Female, 53 years old with history of K44.9 DIAPHRAGMATIC HERNIA WO OBSTRUCTION OR GANGR; PH[facility], TECHNIQUE: The procedure was explained and patient history elicited. All patient questions were ans wered prior to start of procedure. Multiple spot fluoroscopic images of the esophagus were obtained a fter the oral ingestion of effervescent crystals and liquid barium as the contrast agent. Fluoroscopic time: 3 seconds sec Fluoroscopic images: 261 Radiographs taken: DAP: [id number] mGym2 FINDINGS: The esophagus demonstrates normal primary and secondary peristalsis. The esophageal mucosa is smooth without evidence of focal stricture, ulceration, or abnormal outpouching. No gastroesophageal reflu x disease was identified. IMPRESSION: Normal esophagram.
== END | disposition home or self-care (01) ==
LOC: RADUSWWP 08:46
PROVIDERS: ATTEND Surgery Plastic and Reconstructive Surgery
DX: K44.9 Diaphragmatic hernia without obstruction or gangrene (principal)
CPT/HCPCS: 74220

== ENCOUNTER 2023-11-27 09:13 | Day surgery (SDC) | payer OTHER ==
--- NOTE | 2023-11-27 08:59 | P.GSHP ---
History of Present Illness H&P Date: 11/27/23 CHIEF COMPLAINT: Ventral hernia. HISTORY OF PRESENT ILLNESS: The patient is a 53-year-old female who presents with swelling along the abdomen for over 1 year with pain and tenderness. She has previous history of hysterectomy and open incisions. Findings were consistent with incisional ventral hernia. She reports change in bowel habits as a result. Now she presents for further evaluation and management. PAST MEDICAL HISTORY: Please see list and reviewed. PAST SURGICAL HISTORY: Please see list and reviewed. MEDICATIONS: Please see list and reviewed. ALLERGIES: Please see list and reviewed. SOCIAL HISTORY: Please see list and reviewed. FAMILY HISTORY: No reports of Crohn disease or ulcerative colitis. REVIEW OF ORGAN SYSTEMS: CONSTITUTIONAL: No reports of fevers or chills. Has intentional weight loss GI: Denies any blood in stools or constipation. HEENT: Denies any trouble with vision, hearing or nosebleeds. No difficulty swallowing. LYMPHATIC: The patient denies any lumps and bumps around the neck. ENDOCRINE: Denies any thyroid disorders. Denies any blood sugar glucose intolerance. RESPIRATORY: Denies pneumonia. Denies any troubles with breathing or dyspnea on exertion. CARDIOVASCULAR: Denies any chest pain, palpitations, or recent heart attacks. Cardiac risk assessment obtained for normal EKG GENITOURINARY: Denies any blood in urine or increased urinary frequency. Prior hysterectomy. MUSCULOSKELETAL: Denies any back pain, stiffness, joint arthritis. NEUROLOGIC: Denies any numbness or tingling along the distal extremities. No seizure disorders or headaches. PSYCHIATRIC: No suidical ideation. HEMATOLOGIC: Denies any abnormal bleeding or bruising. BREASTS: Denies any breast lumps, pain or nipple discharge. PHYSICAL EXAM: VITAL SIGNS: Stable GENERAL: Well-developed pleasant female in no acute distress. HEENT: No scleral icterus. Extraocular movements grossly intact. Moist buccal mucosa. NECK: Supple without lymphadenopathy. CHEST: Unlabored respirations. Equal bilateral excursions. CARDIOVASCULAR: Regular rate and rhythm. Distal 2+ pulses. ABDOMEN: Soft, nondistended. Tender along the abdomen with swelling. Protuberant. MUSCULOSKELETAL: No clubbing, cyanosis, or edema. SKIN: Well perfused. PSYCH: Alert and oriented. No focal or lateralizing signs. ASSESSMENT: 1. Ventral hernia, incarcerated incisional PLAN: 1. Recommend proceeding with robotic ventral hernia repair with mesh. 2. Benefits and risks of surgical intervention was discussed including possibility of open technique. 3. DVT prophylaxis. 4. Antibiotic prophylaxis. 5. She is elevated risk with BMI over 30 6. Nutritional assessment for BMI over 30 7. Non-narcotic pain managment reviewed. 8. Tobacco cessation and counseling performed. 9. Diabetes with strict glycemic control reviewed. 10. Abdominal wall block advised for pain management 11. EKG on day of procedure advised Past Medical History Past Medical History: Diabetes Mellitus, GERD/Reflux, Hyperlipidemia, Hypertens ion, Liver Disease, Myocardial Infarction (GA), Neurologic Disorder, Osteoarthritis (OA), Pneumonia, Thyroid Disorder Additional Past Medical History / Comment(s): Neuropathy/numbness in bilateral feet, fatty liver, hx migraines, none in one year, hx Pneumonia 2 yrs ago, hx Shingles August 2022. tx for vasospams in heart, Last Myocardial Infarction Date:: 2020 History of Any Multi-Drug Resistant Organisms: None Reported Past Surgical History: Cholecystectomy, Ear Surgery, Hysterectomy Past Anesthesia/Blood Transfusion Reactions: Motion Sickness Additional Past Anesthesia/Blood Transfusion Reaction / Comment(s): "Get a rash from Anesthesia sometimes, they usually give me benadyrl with anesthesia". Smoking Status: Never smoker - Past Family History Father Family Medical History: Cancer Medications and Allergies Home Medications Medication Instructions Recorded Confirmed Type DULoxetine HCL [Cymbalta] 60 mg PO QAM 04/21/20 11/25/23 History Gabapentin [Neurontin] 600 mg PO TID PRN 04/21/20 11/25/23 History Levothyroxine Sodium [Synthroid] 25 mcg PO QAM 04/21/20 11/25/23 History Lisinopril-Hctz 20-25 mg 1 tab PO DAILY 08/22/20 11/25/23 History [Zestoretic 20-25] Atorvastatin [Lipitor] 80 mg PO BID 10/24/22 11/25/23 History Dapagliflozin Propanediol [Farxiga] 10 mg PO DAILY 10/24/22 11/25/23 History Omeprazole Magnesium [PriLOSEC OTC] 20 mg PO DAILY 10/24/22 11/25/23 History amLODIPine [Norvasc] 5 mg PO QAM 10/24/22 11/25/23 History diphenhydrAMINE [Benadryl] 25 mg PO QAM 10/24/22 11/25/23 History sitaGLIPtin [Januvia] 100 mg PO DAILY 11/25/23 11/25/23 History Allergies Allergy/AdvReac Type Severity Reaction Status Date / Time amoxicillin Allergy Swelling Verified 11/25/23 09:00 clarithromycin [From Biaxin] Allergy Swelling Verified 11/25/23 09:00 Penicillins Allergy Swelling Verified 11/25/23 09:00 topiramate [From Topamax] Allergy Swelling Verified 11/25/23 09:00
[2023-11-27] MEDS ORDERED: HYDROmorphone 0.5 MG/0.5 ML SYRINGE IVP PRN (09:27)
[2023-11-27] MEDS: SCOPOLAMINE 1 MG/72 HR PATCH TRANSDERM STA (10:01)
[2023-11-27] MEDS: ACETAMINOPHEN TAB 500 MG TAB PO PRN (10:02)
[2023-11-27] MEDS: MELOXICAM 7.5 MG TAB PO PRN (10:02)
[2023-11-27 10:03] VITALS: TEMP 97.7
[2023-11-27] MEDS: LIDOCAINE 1% (10MG/ML) FOR IV START INTRADERMA PRN (10:09)
[2023-11-27] MEDS: LACTATED RINGERS 1,000 ML IV SCH (10:10)
[2023-11-27] MEDS: ONDANSETRON 4 MG/2 ML VIAL IVP PRN (10:10)
[2023-11-27] MEDS: DEXAMETHASONE SOD PHOSPHATE 4 MG/ML 1 ML VIAL IV ONE (10:10)
[2023-11-27 10:13] LABS: Glucose,Whole Blood 143 mg/dL (70-110)
[2023-11-27] MEDS: MIDAZOLAM 2 MG/2 ML VIAL IVP ONE (10:20)
[2023-11-27] MEDS: fentaNYL (PF) 50 MCG/ML 2 ML AMP IVP ONE (10:20)
[2023-11-27 10:27] LABS: HCT 38.8 % (34.0-46.0); HGB 12.8 gm/dL (11.4-16.0); MCH 31.4 pg (25.0-35.0); MCV 95.2 fL (80.0-100.0); Mean Platelet Volume 7.6; Platelet Count 386 k/uL (150-450); RBC 4.08 m/uL (3.80-5.40); RDW 14.3 % (11.5-15.5); WBC 8.6 k/uL (3.8-10.6)
--- NOTE | 2023-11-27 10:32 | P.ANPRN ---
Procedure Note - Anesthesia - Nerve Block Performed Bilateral Erector Spinae Single Time Out Performed: Yes Date of Procedure: 11/27/23 Procedure Start Time: 10:20 Procedure Stop Time: :29 Location of Patient: PreOp Indication: Acute Post-Operative Pain, Requested by Surgeon Sedation Type: Sedate with meaningful contact maintained Preparation: Sterile Prep Position: Sitting Needle Types: Pajunk Needle Gauge: 21 Ultrasound used to visualize needle placement: Yes Ultrasound used to observe medication spread: Yes Injectate: 0.5% Ropivacaine (see comment for volume) (20 ml + 10 ml NS + 4 mg Dexamethasone per side) Blood Aspirated: No Pain Paresthesia on Injection Noted: No Resistance on Injection: Normal Image Stored and Saved: Yes Events: Uneventful and Well Tolerated
[2023-11-27] MEDS: HEPARIN SODIUM,PORCINE 5,000 UNIT/ML 1 ML VIAL SQ PRN (10:38)
[2023-11-27] MEDS ORDERED: fentaNYL (PF) 50 MCG/ML 2 ML AMP ONE (12:14)
[2023-11-27] MEDS ORDERED: MIDAZOLAM 2 MG/2 ML VIAL ONE (12:14)
[2023-11-27] MEDS ORDERED: LIDOCAINE 1% INJ 10MG/ML (20 ML MDV) ONE (12:14)
[2023-11-27] MEDS ORDERED: ROPIVACAINE 5 MG/ML 30 ML VIAL ONE (12:14)
[2023-11-27] MEDS ORDERED: HYDROmorphone (PF) 1 MG/ML ONE (12:14)
[2023-11-27] MEDS ORDERED: DEXAMETHASONE SOD PHOSPHATE 4 MG/ML 1 ML VIAL ONE (12:14)
[2023-11-27] MEDS ORDERED: ROCURONIUM 10 MG/ML (5 ML VIAL) IV ONE (12:14)
[2023-11-27] MEDS ORDERED: SUCCINYLCHOLINE CHLORIDE 200 MG/10 ML VIAL IV ONE (12:14)
[2023-11-27] MEDS ORDERED: GLYCOPYRROLATE 0.2 MG/ML 2 ML VIAL ONE (12:14)
[2023-11-27] MEDS ORDERED: NEOSTIGMINE 1 MG/ML 10 ML VIAL ONE (12:14)
[2023-11-27] MEDS ORDERED: PROPOFOL 10 MG/ML 20 ML VIAL IV ONE (12:14)
[2023-11-27] MEDS ORDERED: PHENYLEPHRINE 10 MG/ML VIAL ONE (12:14)
[2023-11-27] MEDS: LIDOCAINE 1%-EPI 1:100,000 20 ML VIAL SQ ONE (12:48)
--- NOTE | 2023-11-27 15:22 | P.OP ---
Date of Procedure: 11/27/23 Description of Procedure: SURGEON: CSASIE DALTON MD PREOPERATIVE DIAGNOSES: 1. Initial incarcerated incisional hernia 2. Diabetes type 2, not insulin-dependent 3. Hypertensive heart disease 4. Gastroesophageal reflux disease 5. Hypothyroidism 6. Diabetic neuropathy 7. Depressive disorder 8. Hyperlipidemia 9. History of myocardial infarction 10. Lower extremity neuropathy 11. Fatty liver disease 12. Generalized anxiety disorder 13. History of motion sickness POSTOPERATIVE DIAGNOSES: 1. Initial epigastric ventral hernia with incarceration 1. Initial incarcerated incisional hernia, 10 cm 2. Diabetes type 2, not insulin-dependent 3. Hypertensive heart disease 4. Gastroesophageal reflux disease 5. Hypothyroidism 6. Diabetic neuropathy 7. Depressive disorder 8. Hyperlipidemia 9. History of myocardial infarction 10. Lower extremity neuropathy 11. Fatty liver disease 12. Generalized anxiety disorder 13. History of motion sickness 14. Severe peritoneal adhesions 15. Diastases recti OPERATION: 1. Robotic-assisted da Alexis Xi laparoscopic lysis of adhesions, extensive 2. Robotic-assisted da Alexis Xi laparoscopic reduction and repair of initial incarcerated incisional hernia 10 x 10 cm, Ventralight ST mesh 15 x 20 cm Anesthesia: GETA, regional, local Estimated Blood Loss (ml): 5 Pathology: None COMPLICATIONS: None. Operative Findings: 1. Swedish cheese defect, large with incarcerated omentum, 10 x 10 cm 2. Diastases recti 8 cm 3. Fascia repaired using #1 V-lock suture 4. Moderate abdominal wall to omental peritoneal adhesions requiring lysis of adhesions INDICATIONS: The patient is a 53-year-old male who presents with a personal history of multiple abdominal wall hernias. Surgical intervention with laparoscopic versus robotic and open techniques were reviewed. Placement of mesh was also reviewed. Benefits and risks were thoroughly described. Informed consent was obtained. DESCRIPTION OF PROCEDURE: The patient was brought into the operating room and laid in supine position. After general induction, the abdomen had been prepped and draped in standard sterile fashion. Ioban draping was also placed. Prior to incision, a timeout protocol was confirmed with surgical team regarding the patient's name including procedures to be performed. The robot was primed prior to the procedure. A field block using local anesthetic was placed along hernia site including the proposed port sites. Initial incision was made with an #11 blade along the left upper quadrant. A 0 degree 5 mm laparoscopic trocar entry was performed and insufflated. Three 8 mm ports were placed along the left lateral abdominal wall under direct lo calization after exchanging the 5-mm for an 8 mm port. Placements of the ports were 15 cm from the target anatomy and 10 cm apart. An accessory 12 mm port was placed at the left upper quadrant for exchange of mesh including sutures. The [employer] robot was previously primed, prepped and draped then docked from the right side of the patient onto the left side of the patient. I then sat at the robot [employer] Xi console where working arms of the robot including Bovie cautery connected to robotic scissors, needle nascar driver, and graspers placed by the social research assistant. Moderate peritoneal adhesions omentum to abdominal wall was identified. Extensive lysis of adhesions using vessel sealer and blunt dissection was used to expose fascial defect. Multiple Swedish each defects were found from the xip hoid to the umbilicus including moderate size diastases recti over 8 cm. Incarcerated omental contents were found along the upper midline defect. The defects were reduced with preperitoneal fat including the falciform ligament at the upper midline defect. Upper midline defect including minus wrist use defect of 10 x 10 cm found. The incarcerated contents were reduced as the peritoneal fat was cleaned from the abdominal wall. Next, hemostasis was checked with cautery. The hernia defects were oversewn using #1 nonabsorbable V-lock suture with fascial imbrication x 2. Next, ventralight ST mesh 15 x 20 cm was placed with the rough side towards the abdominal wall as to cover all defects. 2-0 VLOC 12 inch and 9 inch sutures were used to fixate the mesh. A final endoscopic imaging was obtained. All instruments and pneumoperitoneum were evacuated from the abdominal cavity. The da Alexis Xi robot was undocked from the patient. I re-scrubbed into the case for closure of incisions. The fascia of the 12-mm port was probed and less than 8-mm in size. The incisions were reapproximated using 4-0 Monocryl in an interrupted subcuticular fashion. Liquid glue was applied to the skin after cleansing the skin with normal saline and dilute hydrogen peroxide. An abdominal binder was placed. An umbilical dressing was placed prior. At the end of the procedure, needle, sponge, and instrument count had been verified correct by surgical first assistant. The patient was taken to the postanesthesia care unit in stable condition. Plan - Discharge Summary Discharge Rx Participant: No New Discharge Prescriptions: New Ibuprofen [Motrin] 600 mg PO Q8HR PRN #30 tab PRN Reason: Pain Acetaminophen Tab [Tylenol Tab] 1,000 mg PO Q6HR PRN #30 tablet PRN Reason: Pain Cyclobenzaprine [Flexeril] 10 mg PO TID #30 tab Simethicone [Gas-X] 125 mg PO AC-TID PRN #20 capsule PRN Reason: Pain Continue Gabapentin [Neurontin] 600 mg PO TID PRN PRN Reason: Pain Levothyroxine Sodium [Synthroid] 25 mcg PO QAM DULoxetine HCL [Cymbalta] 60 mg PO QAM Lisinopril-Hctz 20-25 mg [Zestoretic 20-25] 1 tab PO DAILY amLODIPine [Norvasc] 5 mg PO QAM Omeprazole Magnesium [PriLOSEC OTC] 20 mg PO DAILY Dapagliflozin Propanediol [Farxiga] 10 mg PO DAILY sitaGLIPtin [Januvia] 100 mg PO DAILY diphenhydrAMINE [Benadryl] 25 mg PO QAM Atorvastatin [Lipitor] 80 mg PO BID Discharge Medication List DULoxetine HCL [Cymbalta] 60 mg PO QAM 04/21/20 [History] Gabapentin [Neurontin] 600 mg PO TID PRN 04/21/20 [History] Levothyroxine Sodium [Synthroid] 25 mcg PO QAM 04/21/20 [History] Lisinopril-Hctz 20-25 mg [Zestoretic 20-25] 1 tab PO DAILY 08/22/20 [History] Atorvastatin [Lipitor] 80 mg PO BID 10/24/22 [History] Dapagliflozin Propanediol [Farxiga] 10 mg PO DAILY 10/24/22 [History] Omeprazole Magnesium [PriLOSEC OTC] 20 mg PO DAILY 10/24/22 [History] amLODIPine [Norvasc] 5 mg PO QAM 10/24/22 [History] diphenhydrAMINE [Benadryl] 25 mg PO QAM 10/24/22 [History] sitaGLIPtin [Januvia] 100 mg PO DAILY 11/25/23 [History] Acetaminophen Tab [Tylenol Tab] 1,000 mg PO Q6HR PRN #30 tablet 11/27/23 [Rx] Cyclobenzaprine [Flexeril] 10 mg PO TID #30 tab 11/27/23 [Rx] Ibuprofen [Motrin] 600 mg PO Q8HR PRN #30 tab 11/27/23 [Rx] Simethicone [Gas-X] 125 mg PO AC-TID PRN #20 capsule 11/27/23 [Rx] Follow up Appointment(s)/Referral(s): Cassie Dalton MD [STAFF PHYSICIAN] - 12/01/23 11:30 am Patient Instructions/Handouts: Laparoscopic Herniorrhaphy (IP), Ventral Hernia Repair (GEN), Abdominal Binder (DC) Activity/Diet/Wound Care/Special Instructions: No lifting for 4 pounds in 4 weeks, December 26 Using antibacterial soap. December shower. No bathtub soaks or swimming for 2 weeks, December 10 Wear abdominal binder daily for comfort except for showering. Use ice along incisions for today to prevent swelling. Discharge Disposition: HOME SELF-CARE
[2023-11-27 15:48] LABS: Glucose,Whole Blood 247 mg/dL (70-110)
[2023-11-27 16:21] LABS: ALT 72 U/L (4-34); AST 71 U/L (14-36); African American GFR (CKD) >90 (>60 ml/min/1.73 sqM); Albumin 4.3 g/dL (3.5-5.0); Alkaline Phosphatase 134 U/L (38-126); Anion Gap 13 mmol/L; Blood Urea Nitrogen 22 mg/dL (7-17); Calcium 9.1 mg/dL (8.4-10.2); Carbon Dioxide 24 mmol/L (22-30); Chloride 106 mmol/L (98-107); Glucose 213 mg/dL (74-99); Non-African American GFR(CKD) >90 (>60 ml/min/1.73 sqM); Potassium 3.9 mmol/L (3.5-5.1); Sodium 143 mmol/L (137-145); Total Bilirubin 0.5 mg/dL (0.2-1.3); Total Protein 7.4 g/dL (6.3-8.2)
[2023-11-27] MEDS: INSULIN ASPART (NovoLOG) 100 UNIT/ML VIAL SQ ONE (17:03)
[2023-11-27] MEDS: LACTATED RINGERS 1,000 ML IV ONE (17:09)
[2023-11-27 18:02] LABS: Glucose,Whole Blood 178 mg/dL (70-110)
[2023-11-27 18:39] VITALS: BP 129/74; PULSE 99; RESP 20
== END 2023-11-27 19:09 | disposition home or self-care (01) ==
LOC: OR 09:13
PROVIDERS: ATTEND Surgery Plastic and Reconstructive Surgery
DX: K43.0 Incisional hernia with obstruction, without gangrene (principal); E03.9 Hypothyroidism, unspecified; E11.40 Type 2 diabetes mellitus with diabetic neuropathy, unspecified; E78.5 Hyperlipidemia, unspecified; F32.A Depression, unspecified; F41.1 Generalized anxiety disorder; I11.9 Hypertensive heart disease without heart failure; I25.2 Old myocardial infarction; K21.9 Gastro-esophageal reflux disease without esophagitis; K76.0 Fatty (change of) liver, not elsewhere classified; K66.0 Peritoneal adhesions (postprocedural) (postinfection); G89.18 Other acute postprocedural pain; M19.90 Unspecified osteoarthritis, unspecified site; Z79.84 Long term (current) use of oral hypoglycemic drugs; Z79.890 Hormone replacement therapy; Z79.899 Other long term (current) drug therapy; Z88.0 Allergy status to penicillin; Z90.49 Acquired absence of other specified parts of digestive tract
CPT/HCPCS: 64999; 80053; 85027; 49594; 49329; C1781; J2250; J0330; J1644; J1100; J2710; J0690; J2405; J2001; J3010; J1170; J2795; J2704; J2371